=== PATIENT | male | born 1960 | race Two or more races ===

== ENCOUNTER 2024-06-29 13:02 | Outpatient (AMB) | payer BC, SELFPAY ==
[2024-06-29 13:20] VITALS: BP 118/76; PULSE 101; RESP 19; TEMP 36.3; O2SAT 96; BMI 40.6
--- NOTE | 2024-06-29 13:20 | GSCOFFNT_ITS ---
[facility] - [facility] 06/29/24 13:20 Height 1.78 m Height Method Stated Weight 128.593 kg Weight Measurement Method Standing Scale BMI 40.6 BP 118/76 Blood Pressure Source Automatic Cuff Blood Pressure Location Right Upper Arm Position Sitting Respiration 19 Pulse 101 H Pulse Source Monitor Temp 97.4 F Temp Source Temporal Artery Scan Pulse Oximetry (%) 96 Oxygen Delivery Method Room Air Med/Allergies Allergies & Medications Allergies No Known Allergies Allergy (Verified 06/29/24 13:20) Medication Reconciliation dutasteride 0.5 mg capsule 0.5 mg PO QDAY 06/25/22 [History Confirmed 06/29/24] olmesartan 40 mg tablet 40 mg PO QDAY 06/25/22 [History Confirmed 06/29/24] ibuprofen 600 mg tablet 600 mg PO Q6H PRN pain #20 tabs 11/20/23 [Rx Confirmed 06/29/24] duloxetine 60 mg capsule,delayed release 60 mg PO DAILY 05/25/24 [History Confirmed 06/29/24] oxycodone-acetaminophen 5 mg-325 mg tablet (Percocet) 1 tab PO Q6H PRN pain #30 tabs 05/27/24 [Rx Confirmed 06/29/24] MA Intake Visit Data Collection New Patient or Established: Established Patient (seen at [facility] within 3 years) Seen by Clinical Staff ONLY (RN/MA): No Reason for Visit:: FOLLOW UP ABSCESS Pain Present Currently: No 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: No PCP or OBGYN visit in last 3 months: Yes Hx Now: No Do You Feel Safe at Home: Yes Authorities Contacted: N/A Smoking Status Smoking Status: Never smoker Immunization / Flu Flu Vaccine in the Last 12 Months: Yes Flu Vaccine Exclusion Criteria: Already Received Past Medical History Past Medical History NEUROLOGIC: Negative Neurological Disorders or Seizures CARDIAC: Positive Cardiac Disorders and Hypertension; Negative Congestive Heart Failure RESPIRATORY: Negative Chronic Obstructive Pulmonary Disease (COPD) GASTROINTESTINAL: Positive Gastrointestinal Disorders and Obesity GENITOURINARY: Positive Genitourinary Disorders and Benign Prostatic Hyperplasia; Negative Renal Disease MUSCULOSKELETAL: Positive Fibromyalgia ENDOCRINE: Negative Endocrine Disorders, Diabetes Mellitus Type 1 or Diabetes Mellitus Type 2 HEMATOLOGIC: Positive Blood Disorders and Anemia OTHER HISTORY: Positive Hospitalization (surgery); Negative Autoimmune Disease, Developmental Delay, Shingles, Falls, Blood Transfusions, Blood Transfusion Reaction, Anesthesia Reactions or Cancer Family History FAMILY HISTORY: Positive Family Cardiac Disorders; Negative Family Psychiatric Problems, Family Respiratory Disorders, Family Gastrointestinal Problems, Family Cancer, Family Surgery or Family Anesthesia Reaction Surgical History SURGICAL: Positive Gastric Bypass Surgery and Bowel Surgery Social History SMOKING STATUS: Smoking status: Never smoker ALCOHOL: Alcohol Intake: Never ALCOHOL FREQUENCY: Alcohol Intake Frequency: holidays/special occasions only HOUSING: Housing: House HPI HPI Narrative 63M with HTN, edema, obesity and 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 Pt reports he feels well in terms of the fissure with no perianal pain, however for the last 10 days he has noted an area of firmness just to the right of his anus. It has not drained or bled but makes it uncomfortable for him to sit. His PMD prescribed a 15-day course of bactrim for him for sinusitis, he is still takiing and will complete 07/02 ROS Review of Systems Systems Reviewed: All systems reviewed, normal except as documented Objective/Exam General General Appearance: alert, cooperative and well groomed Resp Respiratory exam: Absent respiratory distress Rectal Rectal exam: Present other (no erythema however there is an area of induration at the right posterior anus which is mildly tender) Assessment & Plan Diagnosis / Problem List (1) Perianal abscess: Status: Acute Assessment & Plan: 63M with HTN, edema, obesity and 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 We discussed options and pt prefers bedside aspiration Patient Portal Questionaires Social History Living Situation History Housing: House Tobacco History Smoking Status: Never smoker Alcohol History Alcohol Intake: Never Alcohol Intake Frequency: holidays/special occasions only Domestic Abuse History Do You Feel Safe at Home: Yes Review of Systems Report any current symptoms Only answer those that you have currently: Past Medical History Past Medical History Have you ever been diagnosed with any of the following: Neurological Problems Seizures: No Cardiology Problems Congestive Heart Failure: No Hypertension: Yes Respiratory Problems Chronic Obstructive Pulmonary Disease (COPD): No Stomache/Intestinal Problems Obesity: Yes Genital/Urinary Problems Renal Disease: No Benign Prostatic Hyperplasia: Yes Musculoskeletal Problems Fibromyalgia: Yes Endocrine Problems Diabetes Mellitus Type 1: No Diabetes Mellitus Type 2: No Blood Problems Anemia: Yes Other Problems Hospitalization: Yes (surgery) Autoimmune Disease: No Developmental Delay: No Shingles: No Falls: No Blood Transfusions: No Blood Transfusion Reaction: No Anesthesia Reactions: No Cancer: No
== END 2024-06-29 14:14 | disposition home or self-care (01) ==
LOC: HODSRG 13:02
PROVIDERS: PCP Family Medicine; Referring Provider Family Medicine; Supervising Provider Surgery; Visit Provider Surgery
DX: K61.0 Anal abscess (principal)
CPT/HCPCS: 99213; Q0091; G0463

== ENCOUNTER 2024-07-27 11:02 | Outpatient (AMB) | payer BC, SELFPAY ==
--- NOTE | 2024-07-27 11:07 | PD.GSCLVISIT ---
Vital Signs - [facility] 07/27/24 11:11 Height 1.78 m Height Method Stated Weight 132.137 kg Weight Measurement Method Standing Scale BMI 41.7 BP 136/83 H Blood Pressure Source Automatic Cuff Blood Pressure Location Right Upper Arm Position Sitting Respiration 19 Pulse 94 Pulse Source Monitor Temp 97.9 F Temp Source Temporal Artery Scan Pulse Oximetry (%) 98 Oxygen Delivery Method Room Air Med/Allergies Allergies & Medications Allergies No Known Allergies Allergy (Verified 07/27/24 11:13) Medication Reconciliation dutasteride 0.5 mg capsule 0.5 mg PO QDAY 06/25/22 [History Confirmed 07/27/24] olmesartan 40 mg tablet 40 mg PO QDAY 06/25/22 [History Confirmed 07/27/24] ibuprofen 600 mg tablet 600 mg PO Q6H PRN pain #20 tabs 11/20/23 [Rx Confirmed 07/27/24] duloxetine 60 mg capsule,delayed release 60 mg PO DAILY 05/25/24 [History Confirmed 07/27/24] oxycodone-acetaminophen 5 mg-325 mg tablet (Percocet) 1 tab PO Q6H PRN pain #30 tabs 05/27/24 [Rx Confirmed 07/27/24] mupirocin 2 % topical ointment 1 applic topical BID #22 grams 07/27/24 [Rx] MA Intake Visit Data Collection New Patient or Established: Established Patient (seen at [facility] within 3 years) Seen by Clinical Staff ONLY (RN/MA): No Reason for Visit:: FOLLOW UP Pain Present Currently: No 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 PCP or OBGYN visit in last 3 months: Yes Hx Now: No Do You Feel Safe at Home: Yes Authorities Contacted: N/A Smoking Status Smoking Status: Never smoker Immunization / Flu Flu Vaccine in the Last 12 Months: No Flu Vaccine Exclusion Criteria: No Exclusion Criteria Past Medical History Past Medical History NEUROLOGIC: Negative Neurological Disorders or Seizures CARDIAC: Positive Cardiac Disorders and Hypertension; Negative Congestive Heart Failure RESPIRATORY: Negative Chronic Obstructive Pulmonary Disease (COPD) GASTROINTESTINAL: Positive Gastrointestinal Disorders and Obesity GENITOURINARY: Positive Genitourinary Disorders and Benign Prostatic Hyperplasia; Negative Renal Disease MUSCULOSKELETAL: Positive Fibromyalgia ENDOCRINE: Negative Endocrine Disorders, Diabetes Mellitus Type 1 or Diabetes Mellitus Type 2 HEMATOLOGIC: Positive Blood Disorders and Anemia OTHER HISTORY: Positive Hospitalization (surgery); Negative Autoimmune Disease, Developmental Delay, Shingles, Falls, Blood Transfusions, Blood Transfusion Reaction, Anesthesia Reactions or Cancer Family History FAMILY HISTORY: Positive Family Cardiac Disorders; Negative Family Psychiatric Problems, Family Respiratory Disorders, Family Gastrointestinal Problems, Family Cancer, Family Surgery or Family Anesthesia Reaction Surgical History SURGICAL: Positive Gastric Bypass Surgery and Bowel Surgery Social History SMOKING STATUS: Smoking status: Never smoker ALCOHOL: Alcohol Intake: Never ALCOHOL FREQUENCY: Alcohol Intake Frequency: holidays/special occasions only HOUSING: Housing: House HPI HPI Narrative 63M with HTN, edema, obesity and 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 At last visit on 06/29 pt had an area of induration at the right posterior anus for which he preferred aspiration and felt immediate relief. Pt reports he is doing well from that standpoint but has noted perianal drainage, he is unsure from where exactly and denies any pain or any changes in bowel habits ROS Review of Systems Systems Reviewed: All systems reviewed, normal except as documented Objective/Exam General General Appearance: alert, cooperative and well groomed Resp Respiratory exam: Absent respiratory distress Rectal Rectal exam: Present other (approx 2cm from the anal verge on the right there is a small external opening, not actively draining and not erythematous but appears to be the external opening of a fistula. 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 At the moment his symptoms are manageable, so I explained that silver nitrate application could help the fistula heal although if symptoms persist or worsen he may need surgical intervention which would require two stages likely months apart. For now pt would like to monitor the area and apply mupirocin cream as he feels that helps greatly. All questions were answered and pt is agreeable to follow up in 6 weeks Orders: Orders Silver nitrate applicator topical stick Today Office Procedures GNS Level of Care Nursing/Assessment Patient Status: Established Patient Nursing Assessment/Reassesment: Medication Reconciliation, Update PMH in EMR and Vital Signs Coordination of Care: Complex Care and Chronic Disease 1-5, Education Complex Pt/Fam, Consent,records obtained, informed consent, Results/Orders obtained and Staff clarify orders Established Patient Charge Established Patient Point Assignment: 95 Established Patient Point Charge: EP Level 3 (80-115) Surgical Proc/IM SQ injection Minor Surgical Procedure: Yes (SILVER NITRATE) Medication Given Medication Given Medication Given: Yes Documented Dose Given: 2 Route: Infiitration Office Meds silver nitrate applicators 75 %-25 % topical stick Performing Provider: Valeria Pedraza MD Performing Location: [facility] Administered by: Valeria Pedraza MD on 07/27/24 11:50 Dose Route Admin Location Dispensed Lot Number Expiration Date [facility] [employer] 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 2 applic topical 2 applic [id number] 09/25/24 [id number] [employer] Patient Portal Questionaires Social History Living Situation History Housing: House Tobacco History Smoking Status: Never smoker Alcohol History Alcohol Intake: Never Alcohol Intake Frequency: holidays/special occasions only Domestic Abuse History Do You Feel Safe at Home: Yes Review of Systems Report any current symptoms Only answer those that you have currently: Past Medical History Past Medical History Have you ever been diagnosed with any of the following: Neurological Problems Seizures: No Cardiology Problems Congestive Heart Failure: No Hypertension: Yes Respiratory Problems Chronic Obstructive Pulmonary Disease (COPD): No Stomache/Intestinal Problems Obesity: Yes Genital/Urinary Problems Renal Disease: No Benign Prostatic Hyperplasia: Yes Musculoskeletal Problems Fibromyalgia: Yes Endocrine Problems Diabetes Mellitus Type 1: No Diabetes Mellitus Type 2: No Blood Problems Anemia: Yes Other Problems Hospitalization: Yes (surgery) Autoimmune Disease: No Developmental Delay: No Shingles: No Falls: No Blood Transfusions: No Blood Transfusion Reaction: No Anesthesia Reactions: No Cancer: No
[2024-07-27 11:11] VITALS: BP 136/83; PULSE 94; RESP 19; TEMP 36.6; O2SAT 98; BMI 41.7
== END 2024-07-27 11:37 | disposition home or self-care (01) ==
LOC: HODSRG 11:02
PROVIDERS: PCP Family Medicine; Referring Provider Family Medicine; Supervising Provider Surgery; Visit Provider Surgery
DX: K60.30 Anal fistula, unspecified (principal); I10 Essential (primary) hypertension; E66.9 Obesity, unspecified; Z68.41 Body mass index [BMI] 40.0-44.9, adult
CPT/HCPCS: 17250; 99213; A9270; G0463

== ENCOUNTER → 2024-07-30 | Outpatient (CLI) | payer BC, SELFPAY ==
--- NOTE | 2024-07-30 14:30 | ECHO_ITS ---
Transthoracic Echo Report Ht (in): 70 Wt (lb): 289 Exam Location: Echo Lab Status: Preadmit Licensed Massage Therapist: Winsome Ojeda Indications: Procedure Performed: BP: / HR: Rhythm: Tachycardia Technical Quality: Technically difficult study MEASUREMENTS (Male / Female) Normal Values 2D ECHO LVOT Diameter 2.2 cm LA Volume Index 23.4 cm?/m? 16 - 28 cm?/m? Ascending Aorta Diameter 3.4 cm M-MODE Aortic Root Diameter MM 3.5 cm LA Systolic Diameter MM 4.5 cm LA Ao Ratio MM 1.3 AV Cusp Separation MM 2.6 cm DOPPLER AV Peak Velocity 145.0 cm/s AV Peak Gradient 8.4 mmHg AV Mean Gradient 5.0 mmHg AV Velocity Time Integral 28.8 cm LVOT Peak Velocity 117.0 cm/s LVOT Peak Gradient 5.5 mmHg LVOT Velocity Time Integral 22.1 cm AV Area Cont Eq vti 2.9 cm? AV Area Cont Eq pk 3.1 cm? MV Peak Velocity 94.7 cm/s MV Peak Gradient 3.6 mmHg MV Mean Velocity 56.4 cm/s MV Mean Gradient 2.0 mmHg MV Area PHT 5.0 cm? Mitral E Point Velocity 54.8 cm/s Mitral A Point Velocity 94.1 cm/s Mitral E to A Ratio 0.6 LV E' Lateral Velocity 7.0 cm/s Mitral E to LV E' Lateral Ratio 7.9 LV E' Septal Velocity 7.1 cm/s Mitral E to LV E' Septal Ratio 7.8 TR Peak Velocity 182.0 cm/s TR Peak Gradient 13.2 mmHg FINDINGS Left Ventricle Normal left ventricular size, wall thickness, systolic function with no obvious regional wall motion abnormalities. The ejection fraction is visually estimated at 55-60%. Right Ventricle The right ventricle is normal in size and systolic function. Left Atrium The left atrium is normal by two-dimensional, color flow and Doppler imaging with no structural abnormalities, no thrombus formation present. Right Atrium The right atrium is normal by two-dimensional imaging, color flow and Doppler imaging with no struct ural abnormalities, no thrombus formation present. Atrial Septum The interatrial septum appears normal with no evidence of a shunt. Aorta The aorta is normal by two-dimensional, color flow and Doppler interrogation. Mitral Valve The mitral valve is normal by two-dimensional, color flow and Doppler interrogation. There is no sig nificant mitral valve regurgitation. Aortic Valve The aortic valve is trileaflet and normal by two-dimensional, color flow and Doppler interrogation. There is no significant aortic valve regurgitation. Tricuspid Valve The tricuspid valve is normal by two-dimensional, color flow and Doppler interrogation. There is tra ce tricuspid valve regurgitation. Pulmonic Valve The pulmonic valve is not well visualized. There is no significant pulmonic valve regurgitation. Vessels The pulmonary artery appears normal. The inferior vena cava pulmonary and hepatic veins appear qiana l. Pericardium The pericardium is normal by two-dimensional imaging. There is no significant pericardial effusion. CONCLUSIONS Suboptimal images due to body habitus. The transthoracic study is normal by two-dimensional, color flow imaging and Doppler interrogation. Normal LV size and function. Estimated EF 55-60% Normal RV size and function. Trace TRVernon Talavera (Electronically Signed) Final Date: 30 July 2024 18:29
== END | disposition home or self-care (01) ==
LOC: SDIM 14:14
PROVIDERS: PCP Family Medicine; Referring Provider Family Medicine; Visit Provider Family Medicine
DX: I07.1 Rheumatic tricuspid insufficiency (principal)
CPT/HCPCS: 93306

== ENCOUNTER 2024-09-07 10:31 | Outpatient (AMB) | payer BC, SELFPAY ==
--- NOTE | 2024-09-07 10:43 | GSCOFFNT_ITS ---
Vital Signs - [facility] 09/07/24 10:44 Height 1.78 m Height Method Stated Weight 134.292 kg Weight Measurement Method Standing Scale BMI 42.3 BP 157/7 H Blood Pressure Source Automatic Cuff Blood Pressure Location Left Upper Arm Position Sitting Respiration 18 Pulse 81 Pulse Source Monitor Temp 97.8 F Temp Source Temporal Artery Scan Pulse Oximetry (%) 97 Oxygen Delivery Method Room Air Med/Allergies Allergies & Medications Allergies No Known Allergies Allergy (Verified 09/07/24 10:44) Medication Reconciliation dutasteride 0.5 mg capsule 0.5 mg PO QDAY 06/25/22 [History Confirmed 09/07/24] olmesartan 40 mg tablet 40 mg PO QDAY 06/25/22 [History Confirmed 09/07/24] ibuprofen 600 mg tablet 600 mg PO Q6H PRN pain #20 tabs 11/20/23 [Rx Confirmed 09/07/24] duloxetine 60 mg capsule,delayed release 60 mg PO DAILY 05/25/24 [History Confirmed 09/07/24] oxycodone-acetaminophen 5 mg-325 mg tablet (Percocet) 1 tab PO Q6H PRN pain #30 tabs 05/27/24 [Rx Confirmed 09/07/24] mupirocin 2 % topical ointment 1 applic topical BID #22 grams 07/27/24 [Rx Confirmed 09/07/24] MA Intake Visit Data Collection New Patient or Established: Established Patient (seen at [facility] within 3 years) Seen by Clinical Staff ONLY (RN/MA): No Reason for Visit:: 6 WEEK FOLLOW UP Pain Present Currently: No 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 PCP or OBGYN visit in last 3 months: Yes Hx Now: No Do You Feel Safe at Home: Yes Authorities Contacted: N/A Smoking Status Smoking Status: Never smoker Immunization / Flu Flu Vaccine in the Last 12 Months: No Flu Vaccine Exclusion Criteria: No Exclusion Criteria Past Medical History Past Medical History NEUROLOGIC: Negative Neurological Disorders or Seizures CARDIAC: Positive Cardiac Disorders and Hypertension; Negative Congestive Heart Failure RESPIRATORY: Negative Chronic Obstructive Pulmonary Disease (COPD) GASTROINTESTINAL: Positive Gastrointestinal Disorders and Obesity GENITOURINARY: Positive Genitourinary Disorders and Benign Prostatic Hyperplasia; Negative Renal Disease MUSCULOSKELETAL: Positive Fibromyalgia ENDOCRINE: Negative Endocrine Disorders, Diabetes Mellitus Type 1 or Diabetes Mellitus Type 2 HEMATOLOGIC: Positive Blood Disorders and Anemia OTHER HISTORY: Positive Hospitalization (surgery); Negative Autoimmune Disease, Developmental Delay, Shingles, Falls, Blood Tr ansfusions, Blood Transfusion Reaction, Anesthesia Reactions or Cancer Family History FAMILY HISTORY: Positive Family Cardiac Disorders; Negative Family Psychiatric Problems, Family Respiratory Disorders, Family Gastrointestinal Problems, Family Cancer, Family Surgery or Family Anesthesia Reaction Surgical History SURGICAL: Positive Gastric Bypass Surgery and Bowel Surgery Social History SMOKING STATUS: Smoking status: Never smoker ALCOHOL: Alcohol Intake: Never ALCOHOL FREQUENCY: Alcohol Intake Frequency: holidays/special occasions only HOUSING: Housing: House HPI HPI Narrative 63M with HTN, edema, obesity and anal fissure s/p botox injection 10/2023, with refractory symptoms s/p sphincterotomy 05/27/24 here for follow up. At previous visit pt had noted perianal drainage from the right posterior region, I applied silver nitrate and pt states he has not noted any recent drainage from the area. He denies any pain, overall feels very well with healthy bowel habits, no diarrhea or straining ROS Review of Systems Systems Reviewed: All systems reviewed, normal except as documented Objective/Exam General General Appearance: alert, cooperative and well groomed Resp Respiratory exam: Absent respiratory distress Rectal Rectal exam: Present normal inspection and other (no perianal fistula openings) Assessment & Plan Diagnosis / Problem List (1) Perianal fistula: Status: Acute Assessment & Plan: 63M with HTN, edema, obesity and anal fissure s/p botox injection 10/2023, with refractory symptoms s/p sphincterotomy 05/27/24 here for follow up, recovering well with no current signs of perianal fistula. We discussed return precautions, pt prefers to call with any concerns or questions rather than schedule a follow- up Orders: Orders Silver nitrate applicator topical stick Today Office Procedures GNS Level of Care Nursing/Assessment Patient Status: Established Patient Nursing Assessment/Reassesment: Medication Reconciliation, Update PMH in EMR and Vital Signs Coordination of Care: Complex Care and Chronic Disease 1-5, Consent,records obtained, informed consent, Education Simp Pt/Fam, Results/Orders obtained and Staff clarify orders Established Patient Charge Established Patient Point Assignment: 90 Established Patient Point Charge: EP Level 3 (80-115) Surgical Proc/IM SQ injection Minor Surgical Procedure: Yes (SILVER NITRATE WAS NOT USED WAS RETURNED) Medication Given Medication Given Medication Given: Yes Documented Dose Given: 2 Route: Infiitration Office Meds silver nitrate applicators 75 %-25 % topical stick Performing Provider: Valeria Pedraza MD Performing Location: [facility] Administered by: Valeria Pedraza MD on 09/07/24 11:15 Dose Route Admin Location Dispensed Lot Number Expiration Date [facility] [employer] 2 applic topical 2 applic [id number] 09/25/24 [id number] [employer] Patient Portal Questionaires Social History Living Situation History Housing: House Tobacco History Smoking Status: Never smoker Alcohol History Alcohol Intake: Never Alcohol Intake Frequency: holidays/special occasions only Domestic Abuse History Do You Feel Safe at Home: Yes Review of Systems Report any current symptoms Only answer those that you have currently: Past Medical History Past Medical History Have you ever been diagnosed with any of the following: Neurological Problems Seizures: No Cardiology Problems Congestive Heart Failure: No Hypertension: Yes Respiratory Problems Chronic Obstructive Pulmonary Disease (COPD): No Stomache/Intestinal Problems Obesity: Yes Genital/Urinary Problems Renal Disease: No Benign Prostatic Hyperplasia: Yes Musculoskeletal Problems Fibromyalgia: Yes Endocrine Problems Diabetes Mellitus Type 1: No Diabetes Mellitus Type 2: No Blood Problems Anemia: Yes Other Problems Hospitalization: Yes (surgery) Autoimmune Disease: No Developmental Delay: No Shingles: No Falls: No Blood Transfusions: No Blood Transfusion Reaction: No Anesthesia Reactions: No Cancer: No
[2024-09-07 10:44] VITALS: BP 157/7; PULSE 81; RESP 18; TEMP 36.6; O2SAT 97; BMI 42.3
== END 2024-09-07 10:57 | disposition home or self-care (01) ==
LOC: HODSRG 10:31
PROVIDERS: PCP Family Medicine; Referring Provider Family Medicine; Supervising Provider Surgery; Visit Provider Surgery
DX: Z48.815 Encounter for surgical aftercare following surgery on the digestive system (principal)
CPT/HCPCS: 99213; A9270; G0463

== ENCOUNTER → 2025-01-19 | Outpatient (CLI) | payer BC, SELFPAY ==
[2025-01-19 13:12] LABS: Collection Type, Urine Clean Catch
[2025-01-19 13:43] LABS: Basophils % (Auto) 1 % (0-2.5); Eosinophils # (Auto) 0.1 Thou/mm3 (0.0-0.5); Eosinophils % (Auto) 2 % (0-10); Hemoglobin 11.7 g/dL (13.5-16.0); Immature Granulocytes % (Auto) 0 % (0-0); Immature Granulocytes Auto 0.02 Thou/mm3 (0.00-0.00); Lymphocytes # (Auto) 1.8 Thou/mm3 (1.0-4.8); Lymphocytes % (Auto) 22 % (10-50); Mean Corpuscular HGB Conc 31.6 g/dl (31.0-37.0); Mean Corpuscular Hemoglobin 24.9 pg (25.0-35.0); Mean Corpuscular Volume 79 fL (80-100); Monocytes # (Auto) 0.5 Thou/mm3 (0.0-0.8); Monocytes % (Auto) 6 % (0-12); Neutrophils # (Auto) 5.5 Thou/mm3 (1.8-7.7); Neutrophils % (Auto) 69 % (37-80); Nucleated Red Blood Cell % 0 /100 WBC (0); Platelet Count 292 Thou/mm3 (140-440); Red Blood Count 4.69 Miln/mm3 (4.50-5.90)
[2025-01-19 13:55] LABS: Anion Gap 9 (7-16); BUN/Creatinine Ratio 26 Ratio (12-20); Blood Urea Nitrogen 29 mg/dL (9-23); Calcium 8.7 mg/dL (8.3-10.6); Carbon Dioxide 24.5 mMol/L (20.0-31.0); Cardiac Risk Estimate 4.2 RATIO (4.0-6.7); Chloride 110 mMol/L (98-107); Cholesterol 162 mg/dL (132-200); Creatinine (Component) 1.1 mg/dL (0.6-1.3); Glucose 99 mg/dL (74-106); HDL Cholesterol 39 mg/dL (40-60); LDL Cholesterol,Calculated 86 mg/dL (0-130); Osmolality,Calculated 290 (275-295); Potassium 4.6 mMol/L (3.4-5.1); Sodium 143 mMol/L (136-145); Triglycerides 186 mg/dL (30-150); eGFR > 60 See Note
[2025-01-19 13:58] LABS: Vitamin B12 308 pg/mL (211-911)
[2025-01-19 14:00] LABS: Creatinine MALB Rnd Ur 145 mg/dL (30-125); Microalbumin Creat Ratio 14 mg/gCrea (<30); Microalbumin, Random Urine 20 mg/L (0-300)
[2025-01-19 14:21] LABS: Bilirubin,Urine Negative (Negative); Blood,Urine Negative (Negative); Clarity,Urine Clear (Clear/Hazy); Color,Urine Lt-Yellow (Lt Yel-Yel); Culture Indicated,Urine Not Indicated; Glucose, Urine Negative (Negative); Hyaline Casts,Urine < 1 /hpf (0-1); Ketones,Urine Negative (Negative); Leukocyte Esterase,Urine Negative (Negative); Nitrite,Urine Negative (Negative); PH,Urine 5.5 (5.0-7.0); Protein,Urine Trace (Neg - Trace); RBC,Urine < 1 /hpf (0-3); Specific Gravity,Urine 1.025 (1.001-1.035); Squamous Epithelial Cell,Urine 1 /hpf (0-5); Urobilinogen,Urine Negative mg/dL (0.0-1.0); WBC,Urine 1 /hpf (0-5)
== END | disposition home or self-care (01) ==
PROVIDERS: PCP Family Medicine; Referring Provider Family Medicine; Visit Provider Family Medicine
DX: E78.5 Hyperlipidemia, unspecified (principal); N40.0 Benign prostatic hyperplasia without lower urinary tract symptoms; I10 Essential (primary) hypertension; D51.0 Vitamin B12 deficiency anemia due to intrinsic factor deficiency
CPT/HCPCS: 36415; 80048; 80061; 81001; 82043; 82570; 82607; 85025

== ENCOUNTER → 2025-02-25 | Outpatient (CLI) | payer MEDICARE, SELFPAY ==
[2025-02-25 17:34] LABS: Basophils # (Auto) 0.1 Thou/mm3 (0.0-0.2); Basophils % (Auto) 0 % (0-2.5); Eosinophils # (Auto) 0.1 Thou/mm3 (0.0-0.5); Eosinophils % (Auto) 1 % (0-10); Hematocrit 34.1 % (41.0-53.0); Hemoglobin 11.4 g/dL (13.5-16.0); Immature Granulocytes Auto 0.09 Thou/mm3 (0.00-0.00); Lymphocytes # (Auto) 1.7 Thou/mm3 (1.0-4.8); Lymphocytes % (Auto) 12 % (10-50); Mean Corpuscular HGB Conc 33.4 g/dl (31.0-37.0); Mean Corpuscular Hemoglobin 25.2 pg (25.0-35.0); Mean Corpuscular Volume 75 fL (80-100); Monocytes # (Auto) 0.6 Thou/mm3 (0.0-0.8); Monocytes % (Auto) 4 % (0-12); Neutrophils # (Auto) 11.7 Thou/mm3 (1.8-7.7); Neutrophils % (Auto) 82 % (37-80); Nucleated Red Blood Cell # 0.00 Thou/mm3 (0.00-0.00); Nucleated Red Blood Cell % 0 /100 WBC (0); Platelet Count 512 Thou/mm3 (140-440); RDW Standard Deviation 46.7 fL (35.1-43.9); Red Blood Count 4.53 Miln/mm3 (4.50-5.90); White Blood Count 14.2 Thou/mm3 (3.8-10.6)
[2025-02-25 17:45] LABS: Anion Gap 12 (7-16); BUN/Creatinine Ratio 44 Ratio (12-20); Blood Urea Nitrogen 87 mg/dL (9-23); Calcium 9.9 mg/dL (8.3-10.6); Carbon Dioxide 18.4 mMol/L (20.0-31.0); Chloride 110 mMol/L (98-107); Creatinine (Component) 2.0 mg/dL (0.6-1.3); Glucose 153 mg/dL (74-106); Osmolality,Calculated 308 (275-295); Potassium 4.6 mMol/L (3.4-5.1); Sodium 140 mMol/L (136-145); eGFR 36 See Note
== END | disposition home or self-care (01) ==
PROVIDERS: PCP Family Medicine; Referring Provider Family Medicine; Visit Provider Family Medicine
DX: K52.9 Noninfective gastroenteritis and colitis, unspecified (principal)
CPT/HCPCS: 36415; 80048; 85025

== ENCOUNTER → 2025-03-23 | Outpatient (CLI) | payer MEDICARE, SELFPAY ==
[2025-03-23 15:26] LABS: Basophils # (Auto) 0.0 Thou/mm3 (0.0-0.2); Basophils % (Auto) 0 % (0-2.5); Eosinophils # (Auto) 0.2 Thou/mm3 (0.0-0.5); Eosinophils % (Auto) 2 % (0-10); Hematocrit 39.6 % (41.0-53.0); Hemoglobin 12.1 g/dL (13.5-16.0); Immature Granulocytes Auto 0.05 Thou/mm3 (0.00-0.00); Lymphocytes # (Auto) 2.0 Thou/mm3 (1.0-4.8); Lymphocytes % (Auto) 20 % (10-50); Mean Corpuscular HGB Conc 30.6 g/dl (31.0-37.0); Mean Corpuscular Hemoglobin 25.6 pg (25.0-35.0); Mean Corpuscular Volume 84 fL (80-100); Monocytes # (Auto) 1.1 Thou/mm3 (0.0-0.8); Monocytes % (Auto) 11 % (0-12); Neutrophils # (Auto) 6.8 Thou/mm3 (1.8-7.7); Neutrophils % (Auto) 67 % (37-80); Nucleated Red Blood Cell # 0.00 Thou/mm3 (0.00-0.00); Nucleated Red Blood Cell % 0 /100 WBC (0); Platelet Count 331 Thou/mm3 (140-440); RDW Standard Deviation 50.3 fL (35.1-43.9); Red Blood Count 4.72 Miln/mm3 (4.50-5.90); White Blood Count 10.1 Thou/mm3 (3.8-10.6)
[2025-03-23 15:37] LABS: Anion Gap 9 (7-16); BUN/Creatinine Ratio 14 Ratio (12-20); Blood Urea Nitrogen 15 mg/dL (9-23); Calcium 8.7 mg/dL (8.3-10.6); Carbon Dioxide 26.0 mMol/L (20.0-31.0); Chloride 110 mMol/L (98-107); Creatinine (Component) 1.1 mg/dL (0.6-1.3); Glucose 65 mg/dL (74-106); Osmolality,Calculated 287 (275-295); Potassium 4.7 mMol/L (3.4-5.1); Sodium 145 mMol/L (136-145); eGFR > 60 See Note
== END | disposition home or self-care (01) ==
LOC: COPL 14:07
PROVIDERS: PCP Family Medicine; Referring Provider Family Medicine; Visit Provider Family Medicine
DX: D50.9 Iron deficiency anemia, unspecified (principal); E86.0 Dehydration; I10 Essential (primary) hypertension
CPT/HCPCS: 36415; 80048; 85025

== ENCOUNTER 2025-04-30 10:29 | Emergency (ER) | payer MEDICARE, SELFPAY ==
[2025-04-30 10:30] VITALS: BMI 25.5
--- NOTE | 2025-04-30 10:40 | PC.NURSE ---
no answer in lobby when called for vital signs and to see provider
--- NOTE | 2025-04-30 10:52 | PC.NURSE ---
no answer in lobby when called for vital signs and to see provider
--- NOTE | 2025-04-30 11:57 | PC.NURSE ---
no answer in lobby when called for room in ed
== END 2025-04-30 12:00 | disposition left against medical advice (07) ==
LOC: SERX 12:05
PROVIDERS: Emergency Provider Family Medicine
DX: Z53.21 Procedure and treatment not carried out due to patient leaving prior to being seen by health care provider (principal)
CPT/HCPCS: 99281

== ENCOUNTER 2025-05-04 13:42 | Inpatient (IN) | payer MEDICARE, SELFPAY ==
[2025-05-04] VITALS (7 sets, daily range): BP systolic 78–100; BP diastolic 42–69; PULSE 75–84; RESP 16–99; TEMP 36.5–37.2; O2SAT 94–100; BMI 39.4; BMI 40.5
--- NOTE | 2025-05-04 14:10 | EKG_ITS ---
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
--- NOTE | 2025-05-04 14:10 | XR_ITS ---
Examination: CT abdomen and pelvis without contrast. Coronal 3-D reconstructions. Sagittal 2-D reconstructions. Date and time of exam:May 04, 2025 1531 hours, comparison July 18, 2014 INDICATIONS: Abdominal pain and cramping today CTDI: vol (mGy): 16.3 DLP: (mGycm): 1163 Technique: Axial images of the abdomen have been obtained, 3 mm slice thickness Intravenous contrast material has not been administered. Low dose protocols were performed. One or more of the following dose reduction techniques were used; automated exposure control, adjustment of the mA and/or KV according to patient size, use of iterative reconstruction technique. Findings: No focal liver or splenic lesion Distended gallbladder, gallstones, marked gallbladder wall thickening No definite extra hepatic biliary tract dilatation No pancreatic mass No renal or ureteral calculi Aorta normal size Intact urinary bladder Abnormal thickening of the right lateral wall of the rectum, axial image 229 measuring up to 19 mm Prominent osteopenia with advanced degenerative disc disease L4-L5, L5-S1 IMPRESSION: Acute calculus cholecystitis, recommend hepatobiliary sonography follow-up Abnormal thickening of the right lateral wall of the rectum, differential would include rectal carcinoma, recommend direct inspection
--- NOTE | 2025-05-04 14:12 | PD.EDADULT ---
ED General RME/HPI General Chief complaint: Syncope / Near Syncope Stated complaint: NEAR SYNCOPE Time Seen by Provider: 05/04/25 14:09 Arrival date/time: 05/04/25 13:42 CC: Abdominal pain abdominal cramping near syncope HPI patient has a second episode of near syncope the first 1 3 days ago and then again today. Patient denies LOC. Patient has had lower abdominal cramping and constipation for the past 4 days. Patient has a history of a Hardeep-en-Y performed by Dr. Cochran in [place] in 2000. EMS reports stable vital signs and route. Patient denies fever chills chest pain shortness of breath or difficulty breathing. Patient is adamant he had no loss of consciousness this episode today. Patient was seen by PCP 2 days ago given a shot of Toradol for his cramping and went home. Related Data Home Medications ?Medication ?Instructions ?Recorded ?Confirmed dutasteride 0.5 mg capsule 0.5 mg PO QDAY 06/25/22 09/07/24 olmesartan 40 mg tablet 40 mg PO QDAY 06/25/22 09/07/24 duloxetine 60 mg capsule,delayed 60 mg PO DAILY 05/25/24 09/07/24 release Previous Rx's ?Medication ?Instructions ?Recorded ibuprofen 600 mg tablet 600 mg PO Q6H PRN pain #20 tabs 11/20/23 oxycodone-acetaminophen 5 mg-325 1 tab PO Q6H PRN pain #30 tabs 05/27/24 mg tablet (Percocet) mupirocin 2 % topical ointment 1 applic topical BID #22 grams 07/27/24 Allergies Allergy/AdvReac Type Severity Reaction Status Date / Time No Known Allergies Allergy Verified 05/04/25 13:57 Review of Systems Review of Systems Narrative Review of Systems: GEN: No fever, no chills, no weight loss EYES: No discharge, no visual changes, no pain HEENT: No ear pain, no congestion, no sore throat PULM: No shortness of breath, no cough, no congestion CV: No chest pain, no dyspnea on exertion, no palpitations GI: No nausea, no vomiting, no diarrhea, + pain, + constipation : No frequency, no urgency, no dysuria MUSC/SKEL: No joint pain, no back pain SKIN: No rash PSYCH: No hallucinations, no depression HEME/LYMPH: No easy bleeding or bruising tendencies NEURO: No weakness, no headache Past Medical History Past Medical History NEUROLOGIC: Negative Neurological Disorders or Seizures CARDIAC: Positive Cardiac Disorders and Hypertension; Negative Congestive Heart Failure RESPIRATORY: Negative Chronic Obstructive Pulmonary Disease (COPD) GASTROINTESTINAL: Positive Gastrointestinal Disorders and Obesity GENITOURINARY: Positive Genitourinary Disorders and Benign Prostatic Hyperplasia; Negative Renal Disease MUSCULOSKELETAL: Positive Musculoskeletal Disorders and Fibromyalgia ENDOCRINE: Negative Endocrine Disorders, Diabetes Mellitus Type 1 or Diabetes Mellitus Type 2 HEMATOLOGIC: Positive Blood Disorders and Anemia OTHER HISTORY: Positive Hospitalization (surgery); Negative Autoimmune Disease, Developmental Delay, Shingles, Falls, Blood Transfusions, Blood Transfusion Reaction, Anesthesia Reactions or Cancer Family History FAMILY HISTORY: Positive Family Cardiac Disorders; Negative Family Psychiatric Problems, Family Respiratory Disorders, Family Gastrointestinal Problems, Family Cancer, Family Surgery or Family Anesthesia Reaction Surgical History SURGICAL: Positive Gastric Bypass Surgery and Bowel Surgery Social History SMOKING STATUS: Former smoker SUBSTANCE USE: does not use ED Exam Narrative Physical exam: [General: Obese not in any acute distress Head normocephalic HEENT: Within acceptable limits Neck is supple nontender Chest equal chest rise nontender to palpation Respiratory: Clear to auscultation no wheezes crackles or rubs CV: Rate rhythm is regular no murmurs rubs or clicks Abdomen is grossly distended secondary to body habitus soft nontender no masses positive bowel sounds all 4 quadrants Back: No CVA tenderness no spinous process tenderness from cervical spine thoracic and lumbar spine Skin: Intact no petechiae rash induration ulceration or crepitus Extremities: Moving all extremity against resistance cap refill less than 2 seconds neurosensory intact Neuro: Awake alert oriented x3 Glascow coma 15 no focal deficits] Course Course Course Narrative: CT shows the patient has acute cholecystitis with a 13,000 white count he is chronically anemic. Patient's laboratory results clinical presentation and imaging discussed with Dr. huang who agrees to this consult Patient's case discussed with residents and who agrees accept the patient for admission. Quality Measures none Orders Category Date Time Status EKG (ED ONLY) *Do not use* NOW Care 05/04/25 14:10 Completed Consult to General Surgery Stat Cons 05/04/25 16:[address] abdomen pelvis wo con Stat Exams 05/04/25 14:10 Completed EKG (ED Only) Stat Exams 05/04/25 14:10 Draft B-Type Natriuretic Peptide Stat Lab 05/04/25 14:36 Completed CBC Stat Lab 05/04/25 14:36 Completed Comprehensive Metabolic Panel Stat Lab 05/04/25 14:36 Completed Drug Screen,Urine Stat Lab 05/04/25 14:36 Completed LDH (Lactate Dehydrogenase) Stat Lab 05/04/25 14:36 Completed Magnesium Stat Lab 05/04/25 14:36 Completed Partial Thromboplastin Time Stat Lab 05/04/25 14:36 Completed Prothrombin Time with INR Stat Lab 05/04/25 14:36 Completed Troponin I Stat Lab 05/04/25 14:36 Completed Urinalysis, C/S if Indicated Stat Lab 05/04/25 14:36 Completed Piper/Tazo 3.375 gm Premix [Zosyn] Med 05/04/25 16:07 Active 3.375 gm in 50 ml IV X1 Sodium Chloride 0.9% 1000 ml [Ns] 1,000 ml Med 05/04/25 15:33 Active IV 999 mls/hr Vital Signs Vital signs: Vital Signs Temperature 97.7 F 05/04/25 13:49 Pulse Rate 77 05/04/25 13:49 Respiratory Rate 18 05/04/25 13:49 Blood Pressure 95/59 L 05/04/25 13:49 Pulse Oximetry (%) 100 05/04/25 13:49 Oxygen Delivery Method Nasal Cannula 05/04/25 13:49 Oxygen Flow Rate 4 05/04/25 13:49 Discharge Plan Plan Patient Disposition: Other Care w/in Hosp ([facility]) Patient condition on transfer: Stable Prescriptions/Referrals Prescriptions/Med Rec: No Action mupirocin 2 % ointment 1 applic topical BID Qty: 22 1RF olmesartan 40 mg tablet 40 mg PO QDAY Patient Comments: TAKE 1 TABLET BY MOUTH EVERY DAY AT DINNER dutasteride 0.5 mg capsule 0.5 mg PO QDAY Patient Comments: TAKE 1 CAPSULE BY MOUTH EVERY DAY duloxetine 60 mg capsule,delayed release(DR/EC) 60 mg PO DAILY oxycodone-acetaminophen [Percocet] 5-325 mg tablet 1 tab PO Q6H MDD 6 tabs PRN (Reason: pain) Qty: 30 0RF ibuprofen 600 mg tablet 600 mg PO Q6H PRN (Reason: pain) Qty: 20 0RF Problem List Clinical Impression: RAUDEL (acute kidney injury), Acute cholecystitis Patient/Caregiver Discharge Instructions Print Language: Faroese Stand Alone Forms: Allison Award Info., Patient Portal Info Letter PA/APARTMENT LEASING AGENT Supervising Physician NORMA/KENNY Supervising Physician: Byron Canales ENP MDM Clinical Information Provided by patient and EMS Medical Records Reviewed [facility] and EMS Meds/Rx Considered, not Ordered None Labs/Rad/Tests considered, not Ordered None Chronic Illness/Social Conditions Add or document further as needed: Gastric bypass. Obesity EKG EKG Interpretation narrative: EKG performed at 1426 shows ventricular rate 75 AR interval 166 QRS of 122 QTc of 393 sinus rhythm right bundle branch block. Lab Interpretation Lab(s) interpretation(s): CBC shows a leukocytosis of 13.4 H&H of 9.8 and 29.8 respectively no thrombocytopenia note the patient has been anemic but not as severe as today. Coags within acceptable limits CMP shows sodium 135 BUN of 68 creatinine of 2.9 glucose at 95 no other electrolyte imbalances no other transaminitis or T. bili elevation Troponin is unremarkable BMP is unremarkable Imaging Provider imaging interpretation(s): CT shows acute calculous cholecystitis. There is also abnormal thinking of the rectal wall. Medication Administration(s) Medication Administration History Sodium Chloride (Ns) 1,000 mls @ 999 mls/hr IV .Q1H1M ONE Stop: 05/04/25 16:33 Last Admin: 05/04/25 15:39 Dose: 999 mls/hr Documented By: VL Piperacillin/Tazobactam/Dextrose (Zosyn) 3.375 gm in 50 mls @ 100 mls/hr IV X1 ONE; Protocol Stop: 05/04/25 16:36
[2025-05-04 14:53] LABS: Collection Type, Urine Clean Catch
[2025-05-04 14:54] LABS: Basophils # (Auto) 0.0 Thou/mm3 (0.0-0.2); Basophils % (Auto) 0 % (0-2.5); Eosinophils # (Auto) 0.1 Thou/mm3 (0.0-0.5); Eosinophils % (Auto) 0 % (0-10); Hematocrit 29.8 % (41.0-53.0); Hemoglobin 9.8 g/dL (13.5-16.0); Immature Granulocytes Auto 0.13 Thou/mm3 (0.00-0.00); Lymphocytes # (Auto) 1.1 Thou/mm3 (1.0-4.8); Lymphocytes % (Auto) 8 % (10-50); Mean Corpuscular HGB Conc 32.9 g/dl (31.0-37.0); Mean Corpuscular Hemoglobin 26.4 pg (25.0-35.0); Mean Corpuscular Volume 80 fL (80-100); Monocytes # (Auto) 1.0 Thou/mm3 (0.0-0.8); Monocytes % (Auto) 8 % (0-12); Neutrophils # (Auto) 11.0 Thou/mm3 (1.8-7.7); Neutrophils % (Auto) 82 % (37-80); Nucleated Red Blood Cell # 0.00 Thou/mm3 (0.00-0.00); Nucleated Red Blood Cell % 0 /100 WBC (0); Platelet Count 244 Thou/mm3 (140-440); RDW Standard Deviation 47.4 fL (35.1-43.9); Red Blood Count 3.71 Miln/mm3 (4.50-5.90); White Blood Count 13.4 Thou/mm3 (3.8-10.6)
[2025-05-04 15:08] LABS: Alanine Aminotransferase 16 U/L (10-49); Albumin, Serum 3.7 gm/dL (3.4-4.8); Albumin/Globulin Ratio 1.5 (1.2-2.2); Alkaline Phosphatase 92 U/L (46-116); Anion Gap 13 (7-16); Aspartate Amino Transferase 29 U/L (0-34); BUN/Creatinine Ratio 23 Ratio (12-20); Bilirubin,Total 0.4 mg/dL (0.3-1.2); Blood Urea Nitrogen 68 mg/dL (9-23); Calcium 8.7 mg/dL (8.3-10.6); Calcium (Corrected) 8.9 mg/dL (8.5-10.1); Carbon Dioxide 21.4 mMol/L (20.0-31.0); Chloride 101 mMol/L (98-107); Creatinine (Component) 2.9 mg/dL (0.6-1.3); Estimated Creatinine Clearance 33.7 mL/min (>60); Globulin 2.5 gm/dL (2.3-3.5); Glucose 95 mg/dL (74-106); LDH (Lactate Dehydrogenase) 152 U/L (120-246); Magnesium 2.2 mg/dL (1.6-2.6); Osmolality,Calculated 289 (275-295); Potassium 3.8 mMol/L (3.4-5.1); Sodium 135 mMol/L (136-145); Total Protein 6.2 gm/dL (5.7-8.2); Troponin I < 0.002 ng/mL (0.0-0.045); eGFR 23 See Note
[2025-05-04 15:10] LABS: INR 1.0 (0.9-1.3); Partial Thromboplastin Time 23.6 Seconds (22.0-36.0); Prothrombin Time 10.9 Seconds (9.0-12.2)
[2025-05-04 15:15] LABS: Bilirubin,Urine Negative (Negative); Blood,Urine Negative (Negative); Color,Urine Yellow (Lt Yel-Yel); Culture Indicated,Urine Not Indicated; Glucose, Urine Negative (Negative); Hyaline Casts,Urine 1 /hpf (0-1); Ketones,Urine Negative (Negative); Leukocyte Esterase,Urine Negative (Negative); Nitrite,Urine Negative (Negative); PH,Urine 5.5 (5.0-7.0); Protein,Urine 1+ (Neg - Trace); RBC,Urine 2 /hpf (0-3); Specific Gravity,Urine 1.016 (1.001-1.035); Squamous Epithelial Cell,Urine 1 /hpf (0-5); Urobilinogen,Urine Negative mg/dL (0.0-1.0); WBC,Urine 7 /hpf (0-5)
[2025-05-04 15:16] LABS: Amphetamine/Methamp Scrn,U Negative (Negative); Barbiturate Screen,Urine Negative (Negative); Benzodiazepines Screen,Urine Negative (Negative); Benzoylecgonine Screen, Ur Negative (Negative); Fentanyl Screen,Urine Negative (Negative); Opiate Screen,Urine Negative (Negative); THC Screen,Urine Negative (Negative)
[2025-05-04 15:17] LABS: B-Type Natriuretic Peptide < 20 pg/mL (0-100)
[2025-05-04 15:36] LABS: Clarity,Urine Hazy (Clear/Hazy)
[2025-05-04] MEDS: SODIUM CHLORIDE 0.9% 1000 ML 1,000 ML 999 ML IV (15:39)
[2025-05-04] MEDS: PIPER/TAZO 3.375 GM PREMIX 3.375 GM/50 ML BAG IV (16:51)
[2025-05-04 17:20] LABS: Lactate (Lactic Acid) 0.8 mMol/L (0.4-2.0)
--- NOTE | 2025-05-04 18:13 | PD.RESHP ---
Documentation for date of: 05/04/25 HPI History of Present Illness History of present illness: Patient is a 64-year-old male with past medical history of hypertension and Hardeep-en-Y gastric bypass (2000) who presents on 05/04 for multiple falls over the past 3 days. Patient reports that he had sharp constant right upper quadrant abdominal pain 4 days ago. Presented to the [facility] ED but left before being seen. Took Odessa 5 at home, leftover from previous dental procedure, as well as ibuprofen for pain. Started falling and not recalling events. Denied lightheadedness or dizziness during these episodes. Went to PCP on 05/01, was given Toradol with not much improvement in right upper quadrant pain. Continued losing consciousness and falling since. Right upper quadrant pain has improved, dull and intermittent now. Denies fevers, chills, nausea, vomiting, diarrhea. ED Course: -Initial vitals were BP 95/59, HR 77, RR 18, temp 97.7, 100 percent on room air -Labs significant for WBC 13.4, hemoglobin 9.8, sodium 135, potassium 3.8, BUN 68, creatinine 2.9, glucose 289, lactic 0.8. Total bilirubin 0.4, AST and ALT within normal limits. EKG shows sinus rhythm with RBBB. No ST or T wave changes observed. UA shows WBC 7 otherwise unremarkable. Utox negative. -Imaging included CT A/P shows acute calculous cholecystitis and abnormal thickening of the right lateral wall of the rectum. -In the ED, patient was given Zosyn x 1 and 1 L NS. -Patient was admitted for syncope. Review of Systems Review of systems otherwise negative except what is mentioned above. Past Medical History: Hypertension, BPH, anal fistula, IBS Family History: Noncontributory Surgical History: Hardeep-en-Y (2000), lateral internal sphincterotomy (05/2024) Social History: Occassional alcohol use. Denies history of smoking, denies recreational drug use Current Medications: Duloxetine, dutasteride, ibuprofen, olmesartan,, Linzess (Source: Medication bottles, pending official med rec) Allergies: No known drug allergies Exam Vital Signs Temp Pulse Resp BP Pulse Ox O2 Del Method O2 Flow Rate 98.8 F 77 19 80/43 L 100 Room Air 4 05/04/25 16:04 05/04/25 18:06 05/04/25 17:29 05/04/25 18:06 05/04/25 16:04 05/04/25 16:04 05/04/25 13:49 Narrative Exam Physical Exam General: Awake and in no acute distress. Conversational and non-toxic appearing. Obese. HEENT: Normocephalic, atraumatic, mucous membranes moist. Heart: Regular rate and rhythm, normal S1 and S2, no murmurs. Lungs: Clear to auscultation with no wheezing or crackles. Abdomen: Soft, nondistended, very mild right upper quadrant tenderness, positive bowel sounds. No guarding or rebound tenderness. Neurologic: Alert and oriented x3, no gross neurological deficit, and patient able to move all 4 extremities. Extremities: No edema. Skin: No rash or ecchymoses. Results: Labs 05/05/25 05:20 05/05/25 05:20 Labs: Short CBC 05/04/25 Range/Units 14:36 WBC 13.4 H (3.8-10.6) Thou/mm3 Hgb 9.8 L (13.5-16.0) g/dL Hct 29.8 L (41.0-53.0) % Plt Count 244 (140-440) Thou/mm3 BMP 05/04/25 14:36 Sodium 135 L Potassium 3.8 Chloride 101 Carbon Dioxide 21.4 BUN 68 H Creatinine 2.9 H Glucose 95 Calcium 8.7 Cardiac Enzymes 05/04/25 Range/Units 14:36 Troponin I < 0.002 (0.0-0.045) ng/mL Liver Function 05/04/25 Range/Units 14:36 Total Bilirubin 0.4 (0.3-1.2) mg/dL AST 29 (0-34) U/L ALT 16 (10-49) U/L Alkaline Phosphatase 92 (46-116) U/L Albumin 3.7 (3.4-4.8) gm/dL Urine 05/04/25 Range/Units 14:36 Urine Color Yellow (Lt Yel-Yel) Urine Clarity Hazy (Clear/Hazy) Urine pH 5.5 (5.0-7.0) Ur Specific [place] 1.016 (1.001-1.035) Urine Protein 1+ A (Neg - Trace) Urine Glucose (UA) Negative (Negative) Quality Measures Quality Measures none Advance care planning discussed with:: patient Medications Home Medications and Allergies Home Medications ?Medication ?Instructions ?Recorded ?Confirmed ?Type dutasteride 0.5 mg capsule 0.5 mg PO QDAY 06/25/22 05/04/25 History olmesartan 40 mg tablet 40 mg PO QDAY 06/25/22 05/04/25 History duloxetine 60 mg capsule,delayed 60 mg PO DAILY 05/25/24 05/04/25 History release ibuprofen 200 mg tablet 800 mg PO BID PRN pain 05/04/25 05/04/25 History linaclotide 1 cap PO DAILY 05/04/25 05/04/25 History linaclotide 145 mcg capsule 145 mcg PO DAILY 05/04/25 05/04/25 History (Linzess) olmesartan 40 1 tab PO DAILY 05/04/25 05/04/25 History mg-hydrochlorothiazide 12.5 mg tablet pregabalin 1 cap PO BID 05/04/25 05/04/25 History semaglutide (weight loss) 0.25 0.25 mg subcut Q7D 05/04/25 05/04/25 History mg/0.5 mL subcutaneous pen injector (Wegovy) Allergies Allergy/AdvReac Type Severity Reaction Status Date / Time No Known Allergies Allergy Verified 05/04/25 13:57 Visit Medications Acetaminophen (Acetaminophen 325 Mg Tablet) 650 mg PO Q6H PRN PRN Reason: Fever >101.5 and pain 1-3 Stop: 06/03/25 16:43 Hydrocodone Bitart/Acetaminophen (Hydrocodone/Apap 5/325 Tablet) 1 tab PO Q8HR PRN PRN Reason: Pain 7-10 Stop: 05/09/25 16:52 Heparin Sodium (Porcine) (Heparin Sod Inj 5000 Unit/Ml Vial) 5,000 unit SC Q8HR KEY Stop: 05/18/25 21:59 Lactated Ringer's (Lactated Ringers) 1,000 mls @ 125 mls/hr IV .Q8H ONE Stop: 05/05/25 00:54 Lactated Ringer's (Lactated Ringers) 500 mls @ 999 mls/hr IV .Q31M KEY Stop: 06/03/25 18:11 Pantoprazole Sodium (Pantoprazole Inj 40 Mg Vial) 40 mg IVP QDAY KEY Stop: 06/04/25 08:59 Tramadol HCl (Tramadol Hcl 50 Mg Tablet) 50 mg PO Q6HR PRN PRN Reason: PAIN SCALE 4-6 (Moderate Stop: 05/09/25 16:51 Discontinued Medications Sodium Chloride (Ns) 1,000 mls @ 999 mls/hr IV .Q1H1M ONE Stop: 05/04/25 16:33 Last Infusion: 05/04/25 16:41 Dose: Infused Piperacillin/Tazobactam/Dextrose (Zosyn) 3.375 gm in 50 mls @ 100 mls/hr IV X1 ONE; Protocol Stop: 05/04/25 16:36 Last Infusion: 05/04/25 17:31 Dose: Infused Assessment & Plan Plan Patient is a 64 year old male with PMH of hypertension and Hardeep-en-Y gastric bypass (2000) who presents on 05/04 for RUQ pain and multiple falls over the past 3 days, admitted for acute calculous cholecystitis syncope work up. #Syncope #Hypotension Patient has had multiple falls over the past 3 days. Denies prior episodes. It started after he has took Odessa 5 at home for his right upper quadrant pain. Denies lightheadedness or dizziness. Does not recall events preceding falls. Echo 07/30/2024 shows EF of 55 to 60%, normal LV and RV size and function. Only noted trace TR. Unlikely cardiogenic. Denies history of arrhythmias or seizures. EKG showed normal sinus rhythm with RBBB. Glucose 95 on admission. Most likely secondary to dehydration in setting of elevated creatinine and hypotension. Plan: - Pending orthostatic vitals - CTM BP - Hold antihypertensive meds #Acute Calculous cholcystitis #Leukocytosis Had history RUQ abdominal pain 3 days ago, improving after taking Odessa, ibuprofen, and Toradol. Currently dull and intermittent. CT A/P showed acute calculous cholecystitis and abnormal thickening of the right lateral wall of the rectum. Meets only 1/3 SIRS criteria (WBC 13.4, no fever, tachycardia, tachypnea), does not qualify as sepsis. No pain medications administered in ED. Plan: - Consulted surgeon Dr. Ugarte, appreciate recommendations - S/p IV Zosyn x1 in ED - Will defer antibiotics at this time - Pain regimen: Tylenol, tramadol, norco 5 prn #RAUDEL Admission creatinine 2.9, baseline 1.0-1.2. No history of CKD per patient. Likely prerenal secondary to dehydration in conjunction with hypotension. S/p 1L NS x1 Plan: - IV LR 1L bolus + 500 cc LR bolus, consider additional bolus if continues to be hypotensive - CTM renal panel #Anemia, normocytic #Hx IBS #Hx Hardeep-en-Y Admission Hgb 9.8, baseline 11-12. May be secondary to IBS and Hardeep-en-Y. Does not take multivitamins or iron at home. Takes Linzess at home. - Follow up iron panel, B12, folate, CEA - Pending official med rec #Hx HTN #BPH Chronic problems. BP low on admission. Takes olmesartan and dutasteride at home. Pending official med rec. - Restart home dutasteride when med rec completed - Hold olmesartan as patient is hypotensive - CTM BP Health Maintenance Disposition: med surg for syncope work up DVT prophylaxis: heparin GI prophylaxis: protonix Diet: regular CODE STATUS: FULL Patient plan of care was discussed with the attending physician, Dr. Aguirre. Yanelis Mccartney, PGY-1 Attending Provider Attestation/Addendum I attest that I was physically present for the evaluation, physical examination, lab and imaging review of the patient with the residents. I discussed the case with the residents and agree with the findings and plans of care as documented above. After examination of the patient and review of the clinical data I feel that this patient needs admission to the hospital for further treatment/evaluation. Patient is a 64 year old male with Past medical history of hypertension and Hardeep-en-Y gastric bypass surgery who presented with complaint of multiple falls. Patient also has right upper quadrant for last 4 days. He took some Odessa and Ibuprofen at home but did not have full relief. He had multiple falls at home during which he cannot recall what happened for few seconds. Denies fever, lightheadedness, dizziness, chest pain or palpitations during/before the episode. Today, RUQ pain is better but still has some dull pain and tenderness. In the ED, Vitals are stable, although blood pressure is on softer side. Lab results show WBC of 13.4, Hb 9.8, BUN/Creatinine 68/2.9, Glucose 289. Liver panel were within normal limits. CT abdomen/pelvis shows calculous cholecystitis. EKG showed sinus rhythm with RBBB without ST elevation. Patient has mild RUQ tenderness. We will admit the patient for management of calculous cholecystitis. We will start him on IV antibiotics and obtain surgery consult. Syncope appears to be secondary to hypotension but we will obtain orthostatic vitals, hold antihypertensives, obtain ECHO to evaluate further. Received IV fluid bolus for RAUDEL, we will continue to monitor closely. Iron studies, B12, folate to evlauate for anemia. Consuelo Aguirre MD
[2025-05-04] MEDS: RINGERS LACTATED 500 ML 500 ML 999 ML IV (18:18)
[2025-05-04 20:37] LABS: Ferritin 126 ng/mL (10.5-307.3); Iron 13 mcg/dL (65-175); Percent Iron Saturation 4 % (20-55); Total Iron Binding Capacity 266 mcg/dL (250-425); Unsaturated Iron Binding 253 (225-295)
[2025-05-04 20:40] LABS: Carcinoembryonic Antigen < 0.5 ng/mL (0.0-5.0); Folate 6.65 ng/mL (>5.38); Vitamin B12 218 pg/mL (211-911)
--- NOTE | 2025-05-04 22:20 | PC.NURSE ---
had a small amount of thick light yellow, cream colored drain in toilet hat, possibly due to drainage from anal abscess.
[2025-05-04] MEDS: HEPARIN SOD INJ 5000 UNIT/ML VIAL SC (23:11)
[2025-05-05] VITALS (14 sets, daily range): BP systolic 96–136; BP diastolic 62–83; PULSE 84–109; RESP 12–96; TEMP 36.1–37.4; O2SAT 94–99
[2025-05-05 01:38] LABS: OBS Card Expiration Date 09-2026; OBS Card Lot # 23001; OBS Developer Expiration Date 09-2026; OBS Developer Lot # 23003; OBS Performed By fabic; OBS QC OK? Yes; Occult Blood, Stool Negative (Negative)
[2025-05-05 05:52] LABS: Basophils # (Auto) 0.0 Thou/mm3 (0.0-0.2); Basophils % (Auto) 0 % (0-2.5); Eosinophils # (Auto) 0.0 Thou/mm3 (0.0-0.5); Eosinophils % (Auto) 0 % (0-10); Hematocrit 32.2 % (41.0-53.0); Hemoglobin 10.3 g/dL (13.5-16.0); Immature Granulocytes Auto 0.12 Thou/mm3 (0.00-0.00); Lymphocytes # (Auto) 1.0 Thou/mm3 (1.0-4.8); Lymphocytes % (Auto) 8 % (10-50); Mean Corpuscular HGB Conc 32.0 g/dl (31.0-37.0); Mean Corpuscular Hemoglobin 26.1 pg (25.0-35.0); Mean Corpuscular Volume 82 fL (80-100); Monocytes # (Auto) 0.9 Thou/mm3 (0.0-0.8); Monocytes % (Auto) 7 % (0-12); Neutrophils # (Auto) 11.0 Thou/mm3 (1.8-7.7); Neutrophils % (Auto) 84 % (37-80); Nucleated Red Blood Cell # 0.00 Thou/mm3 (0.00-0.00); Nucleated Red Blood Cell % 0 /100 WBC (0); Platelet Count 250 Thou/mm3 (140-440); RDW Standard Deviation 48.3 fL (35.1-43.9); Red Blood Count 3.95 Miln/mm3 (4.50-5.90); White Blood Count 13.1 Thou/mm3 (3.8-10.6)
[2025-05-05 06:08] LABS: Alanine Aminotransferase 24 U/L (10-49); Albumin, Serum 3.9 gm/dL (3.4-4.8); Albumin/Globulin Ratio 1.6 (1.2-2.2); Alkaline Phosphatase 98 U/L (46-116); Anion Gap 12 (7-16); Aspartate Amino Transferase 24 U/L (0-34); BUN/Creatinine Ratio 27 Ratio (12-20); Bilirubin,Total 0.4 mg/dL (0.3-1.2); Blood Urea Nitrogen 49 mg/dL (9-23); Calcium 8.9 mg/dL (8.3-10.6); Calcium (Corrected) 9.0 mg/dL (8.5-10.1); Carbon Dioxide 24.1 mMol/L (20.0-31.0); Chloride 105 mMol/L (98-107); Creatinine (Component) 1.8 mg/dL (0.6-1.3); Estimated Creatinine Clearance 55.0 mL/min (>60); Globulin 2.5 gm/dL (2.3-3.5); Glucose 114 mg/dL (74-106); Magnesium 2.1 mg/dL (1.6-2.6); Osmolality,Calculated 295 (275-295); Phosphorous 4.0 mg/dL (2.4-5.1); Potassium 4.0 mMol/L (3.4-5.1); Sodium 141 mMol/L (136-145); Total Protein 6.4 gm/dL (5.7-8.2); eGFR 41 See Note
--- NOTE | 2025-05-05 09:47 | PD.SURCONS ---
HPI Consult details Consult date: 05/04/25 Reason for consultation narrative: Right upper quadrant abdominal pain with nausea History of present illness: 64-year-old obese male with history of BPH and hypertension has had laparoscopic Hardeep-en-Y gastric bypass 20 years ago. He presented to the emergency department with right upper quadrant pain and syncopal episodes. He has had 1 week history of intermittent right upper quadrant pain rating to his back. His pain has been getting progressively worse with nausea but denies vomiting, fever, chills, jaundice or discoloration of urine or stool. He denies having similar symptoms in the past. He was noted to have elevation of WBC, CT scan revealed gallstones with gallbladder wall thickening and edema. Review of Systems Constitutional Constitutional: Denies chills and Denies fever(s) Cardiovascular Cardiovascular: Denies chest pain Respiratory Respiratory: Denies cough Gastrointestinal Gastrointestinal: Reports abdominal pain, Reports nausea and Denies vomiting Genitourinary Genitourinary: Denies difficulty urinating Hematologic/Lymphatic Hematologic/Lymphatic: Denies easy bleeding and Denies easy bruising Past Medical History Surgical History OTHER SURGICAL HX: Laproscopis Hardeep-en-Y gastric bypass, repair anal fissure, appendectomy, laparoscopy for reduction of intussusception or internal hernia (details are not known at this time). Social History SMOKING STATUS: Never smoker SUBSTANCE USE: does not use ALCOHOL: Current Meds Home Medications and Allergies Home Medications ?Medication ?Instructions ?Recorded ?Confirmed ?Type dutasteride 0.5 mg capsule 0.5 mg PO QDAY 06/25/22 05/04/25 History olmesartan 40 mg tablet 40 mg PO QDAY 06/25/22 05/04/25 History duloxetine 60 mg capsule,delayed 60 mg PO DAILY 05/25/24 05/04/25 History release ibuprofen 200 mg tablet 800 mg PO BID PRN pain 05/04/25 05/04/25 History linaclotide 1 cap PO DAILY 05/04/25 05/04/25 History linaclotide 145 mcg capsule 145 mcg PO DAILY 05/04/25 05/04/25 History (Linzess) olmesartan 40 1 tab PO DAILY 05/04/25 05/04/25 History mg-hydrochlorothiazide 12.5 mg tablet pregabalin 1 cap PO BID 05/04/25 05/04/25 History semaglutide (weight loss) 0.25 0.25 mg subcut Q7D 05/04/25 05/04/25 History mg/0.5 mL subcutaneous pen injector (Wegovy) Allergies Allergy/AdvReac Type Severity Reaction Status Date / Time No Known Allergies Allergy Verified 05/04/25 13:57 Exam Vital Signs Temp Pulse Resp BP Pulse Ox O2 Del Method O2 Flow Rate 97.6 F 89 17 96/62 97 Room Air 4 05/05/25 08:00 05/05/25 08:00 05/05/25 08:00 05/05/25 08:00 05/05/25 08:00 05/05/25 08:00 05/04/25 13:49 Constitutional Constitutional: no acute distress and obese Routine HEENT Exam Eye: Present PERRL (Anicteric sclera) Routine Abdominal Exam Abdominal: Present soft, normoactive bowel sounds and tenderness (Right upper quadrant tenderness to palpation with guarding, no rebound tenderness or peritonitis at this time); Absent distended Results Results: Laboratory Laboratory results: results reviewed Results: Imaging CT scan - abdomen: report reviewed and image reviewed CT scan - pelvis: report reviewed and image reviewed Assessment & Plan Problem List (1) Calculus of gallbladder with acute cholecystitis without obstruction: Status: Acute Plan Keep NPO with IVF and IV antibiotics. Will plan for laparoscopic possible open cholecystectomy. Risks include but not limited to infection, bleeding, injury to bowel, liver, stomach, bile duct, retained stone, bile leak, abdominal sepsis and or abdominal abscess, need for further procedure and or operation, pneumonia and blood clot discussed with the patient. Benefits and alternatives explained to him, all his questions answered, he agreed and consented to proceed with the operation.
[2025-05-05] MEDS: POT CHL ADDITIVE IV (09:51)
[2025-05-05] MEDS: [UNRECOGNIZED DRUG - OTHER] IV (09:51)
[2025-05-05] MEDS: PIPER/TAZO 3.375 GM PREMIX 3.375 GM/50 ML BAG IV ×3 (09:51→21:13)
[2025-05-05] MEDS: DEXTROSE IV (09:51)
--- NOTE | 2025-05-05 10:09 | ECHO_ITS ---
Transthoracic Echo Report Ht (in): 70 Wt (lb): 282 Exam Location: Echo Lab Status: Inpatient Bacon De Rinder: Valeria Escobar Indications: Procedure Performed: BP: 125 / 68 HR: 89 MEASUREMENTS (Male / Female) Normal Values 2D ECHO LV Diastolic Diameter PLAX 4.2 cm 4.2 - 5.9 / 3.9 - 5.3 cm LV Systolic Diameter PLAX 2.7 cm IVS Diastolic Thickness 1.0 cm 0.6 - 1.0 / 0.6 - 0.9 cm LVPW Diastolic Thickness 1.2 cm 0.6 - 1.0 / 0.6 - 0.9 cm LV Relative Wall Thickness 0.5 LA Volume Index 32.1 cm?/m? 16 - 28 cm?/m? M-MODE AV Cusp Separation MM 1.1 cm DOPPLER AV Peak Velocity 172.0 cm/s AV Peak Gradient 11.8 mmHg AV Mean Gradient 6.0 mmHg AV Velocity Time Integral 35.2 cm LVOT Peak Velocity 112.0 cm/s LVOT Peak Gradient 5.0 mmHg LVOT Velocity Time Integral 24.0 cm MV Area PHT 4.1 cm? Mitral E Point Velocity 68.3 cm/s Mitral A Point Velocity 84.0 cm/s Mitral E to A Ratio 0.8 LV E' Lateral Velocity 7.7 cm/s Mitral E to LV E' Lateral Ratio 8.8 LV E' Septal Velocity 7.5 cm/s Mitral E to LV E' Septal Ratio 9.1 TR Peak Velocity 232.0 cm/s TR Peak Gradient 21.5 mmHg PV Peak Velocity 115.0 cm/s PV Peak Gradient 5.3 mmHg FINDINGS Left Ventricle Normal left ventricular size, wall thickness, systolic function with no obvious regional wall motion abnormalities. There is grade I diastolic dysfunction of the left ventricle (impaired relaxation pattern). The ejection fraction is visually estimated at 55-60 %. Right Ventricle The right ventricle is normal in size and systolic function. The estimated right ventricular systolic pressure, 39 mmHg. Left Atrium The left atrial cavity size is mildly increased. Right Atrium The right atrium is normal by two-dimensional imaging, color flow and Doppler imaging with no structural abnormalities, no thrombus formation present. Atrial Septum The interatrial septum appears normal with no evidence of a shunt. Aorta The aorta is normal by two-dimensional, color flow and Doppler interrogation. Mitral Valve The mitral valve is normal by two-dimensional, color flow and Doppler interrogation. There is no significant mitral valve regurgitation, stenosis or prolapse. Aortic Valve The aortic valve is trileaflet and normal by two-dimensional, color flow and Doppler interrogation. There is no significant aortic valve regurgitation. Tricuspid Valve The tricuspid valve is normal by two-dimensional, color flow and Doppler interrogation. There is trace tricuspid valve regurgitation. Pulmonic Valve The pulmonic valve is not well visualized. There is no significant pulmonic valve regurgitation. Vessels The pulmonary artery appears normal. The inferior vena cava pulmonary and hepatic veins appear normal. Pericardium The pericardium is normal by two-dimensional imaging. There is no significant pericardial effusion. CONCLUSIONS Indication: Syncope Normal left ventricular size and function. Approximate ejection fraction is 55- 60%. The right ventricle is normal in size and systolic functio Mild dilated LA Mil TR Vicki Talavera (Electronically Signed) Final Date: 07 May 2025 16:36
--- NOTE | 2025-05-05 11:57 | PC.SS ---
SS attempted to meet with pt at bedside to complete inital assessment. Pt was out of room, currently in sx with Dr. Ugarte.
--- NOTE | 2025-05-05 12:53 | PC.SS ---
Rounding: SX today with Dr. Ugarte
--- NOTE | 2025-05-05 13:02 | PD.SUROPNT ---
Date of Procedure 05/05/25 Pre Op Diagnosis Cholelithiasis with acute cholecystitis Post Op Diagnosis Cholelithiasis with acute gangrenous cholecystitis Procedure Laparoscopic cholecystectomy Findings Distended and thick-walled gallbladder gangrenous in appearance with multiple gallstones Procedure Description Patient was brought into the operating room in supine position. After administration of general endotracheal anesthesia abdomen was prepped and draped in standard surgical manner. A Veress needle was inserted through the umbilicus and pneumoperitoneum was obtained up to 15 mmHg. The Veress needle was then removed, a 5 mm infraumbilical incision was made and the 5mm trocar was inserted. Laparoscopic camera was placed. Under direct visualization a laparoscopic camera a 10 mm trocar was placed in subxiphoid and two 5 mm trocars placed in right upper quadrant. The anterior surface of the liver was smooth without nodules or any lesions. There were extensive amount of inflammatory reaction in the right upper quadrant with omentum being adherent into the inferior aspect of the liver and gallbladder. Adhesions were bluntly divided and the omentum was retracted caudally. The gallbladder was identified and was noted to be very tense, thick-walled with gangrenous in appearance, multiple large gallstones and significant pericholecystic inflammation. The gallbladder was decompressed with an aspirator. It was retracted cephalad and laterally. Dissection started near the infundibulum of gallbladder where cystic duct and gallbladder junction clearly identified. There was significant amount of inflammatory reaction around the infundibulum of the gallbladder. The cystic duct was circumferentially dissected off the peritoneum and surrounding inflammatory tissue. The critical view of safety was clearly demonstrated. Cystic duct was then divided between 2 endoclips proximally and one distally. The cystic artery was similarly dissected and divided. The gallbladder was then from the liver bed using electrocautery. The gallbladder was then placed inside an Endo Catch and removed from the abdomen utilizing subxiphoid trocar site. The area was copiously and thoroughly washed and irrigated, all the fluid was suctioned and the suction fluid returned clear. Hemostasis achieved using electrocautery. Endoclips noted be in place and intact without any bleeding or any leakage. Hemostasis was adequate and satisfactory. The subxiphoid trocar sites fascial defect was closed with 0 Vicryl using Endo Closure device. Instruments and trocars removed, pneumoperitoneum was evacuated and the incisions closed with 4-0 Monocryl in subcuticular fashion. Instrument needle and sponge counts were all reported to be correct X2. Patient tolerated the procedure well, was extubated, breathing spontaneously and without difficulty and was transferred to postanesthesia care in stable condition. Anesthesia GETA and local Pathology / specimen Other (Gallbladder and contents) Estimated Blood Loss 50 Condition Stable Disposition PACU Surgeon Lisa Ugarte MD Surgical Staff Operation Date: 05/05/25 12:15 Case Staff HOSPITAL EDUCATION COORDINATOR: Sergio Acuna RN First Assistant: Divina Garner
--- NOTE | 2025-05-05 13:16 | SUR.PHASEI ---
pt received from OR in recovery bay 2. pt asleep but responds to voice, breathing unlabored on oxymask 8l. v/s stable. pt dressing to abd dermabond x4 cdi. report received from Malcom VARGAS and Jennie BERNARD.
--- NOTE | 2025-05-05 14:16 | ESPR_ITS ---
<Statement entered by Devyn Gonzalez MD - 05/05/25 16:19> Patient seen and assessed in sitting up in hospital chair, denies having any concerning symptoms at this time. Patient has scheduled laparoscopic cholecystectomy with general surgery. There was some concern for rectal wall thickening which could be contributing to the patient's history of IBS; moreover, patient has established care with general surgery outpatient and recommendation is to follow-up once discharged. Patient was started on IV antibiotics for the cholecystitis which we will discontinue after surgery. Other laboratory findings including patient's acute kidney injury is largely improving with IV fluid resuscitation. Will continue to monitor the patient for any acute changes. I have personally seen and examined the patient. I agree with the resident's assessment and plan as documented below. Devyn Gonzalez, PGY-2 Internal Medicine - [facility] Documentation for date of: 05/05/25 Subjective Subjective Interval history: No acute events overnight. This morning had no complaints. Reports that he does not recall any prodrome prior to falls. Has had 6-7 episodes of falls within the past 3 days. May have experienced dizziness, denies lightheadedness, diarrhea, tinnitus, or post-ictal state. Likely related to hypotension and dehydration, possible vertigo if patient truly experienced dizziness, lower suspicion for seizure at this time. Last episodes were a few months ago, protracted viral infection on cruise. WBC not improving, Dr Ugarte plans for cholecystectomy today, started on IV Zosyn. Renal function improving however not yet back to baseline, will encourage oral hydration. Orthostatic vitals negative. Will repeat echo as last 1 was done July 2024. Hemoglobin improved, patient denies any GI bleeding and FOBT negative; however has worsening perianal abscess. Reports currently not bleeding. He follows Dr. Leon outpatient for this, will defer management to her. Exam Vital Signs Temp Pulse Resp BP Pulse Ox O2 Del Method O2 Flow Rate 97.4 F 97 12 131/74 H 97 Room Air 2 05/05/25 13:45 05/05/25 13:45 05/05/25 13:45 05/05/25 13:45 05/05/25 13:45 05/05/25 08:00 05/05/25 13:45 Narrative Exam Physical Exam General: Awake and in no acute distress. Conversational and non-toxic appearing. Obese. HEENT: Normocephalic, atraumatic, mucous membranes moist. Heart: Regular rate and rhythm, normal S1 and S2, no murmurs. Lungs: Clear to auscultation with no wheezing or crackles. Abdomen: Soft, nondistended, very mild right upper quadrant tenderness, positive bowel sounds. No guarding or rebound tenderness. Neurologic: Alert and oriented x3, no gross neurological deficit, and patient able to move all 4 extremities. Extremities: No edema. Skin: No rash or ecchymoses. Objective Labs 05/05/25 05:20 05/05/25 05:20 Labs: Laboratory Results - last 24 hr 05/04/25 05/04/25 05/05/25 14:36 17:04 00:59 WBC 13.4 H RBC 3.71 L Hgb 9.8 L Hct 29.8 L MCV 80 MCH 26.4 MCHC 32.9 RDW Std Deviation 47.4 H Plt Count 244 Neut % (Auto) 82 H Lymph % (Auto) 8 L Curry % (Auto) 8 Eos % (Auto) 0 Baso % (Auto) 0 Neut # (Auto) 11.0 H Lymph # (Auto) 1.1 Curry # (Auto) 1.0 H Eos # (Auto) 0.1 Baso # (Auto) 0.0 Immature Gran # (Auto) 0.13 H Absolute Nucleated RBC 0.00 Immature Gran % 1 H Nucleated RBC % 0 PT 10.9 INR 1.0 APTT 23.6 Sodium 135 L Potassium 3.8 Chloride 101 Carbon Dioxide 21.4 Anion Gap 13 BUN 68 H Creatinine 2.9 H Estim Creat Clear Calc 33.7 L eGFR 23 L BUN/Creatinine Ratio 23 H Glucose 95 Calculated Osmolality 289 Lactic Acid 0.8 Calcium 8.7 Corrected Calcium 8.9 Phosphorus Magnesium 2.2 Iron 13 L TIBC 266 Iron Saturation 4 L Unsat Iron Binding 253 Ferritin 126 Total Bilirubin 0.4 AST 29 ALT 16 Alkaline Phosphatase 92 Lactate Dehydrogenase 152 Troponin I < 0.002 B-Natriuretic Peptide < 20 Total Protein 6.2 Albumin 3.7 Globulin 2.5 Albumin/Globulin Ratio 1.5 Carcinoembryonic Ag < 0.5 Vitamin B12 218 Folate 6.65 Ur Collection Type Clean Catch Urine Color Yellow Urine Clarity Hazy Urine pH 5.5 Ur Specific [place] 1.016 Urine Protein 1+ A Urine Glucose (UA) Negative Urine Ketones Negative Urine Blood Negative Urine Nitrite Negative Urine Bilirubin Negative Urine Urobilinogen (Auto) Negative Ur Leukocyte Esterase Negative Urine RBC 2 Urine WBC 7 H Ur Squamous Epith Cells 1 Urine Bacteria None Hyaline Casts 1 Ur Culture Indicated? Not Indicated Stool Occult Blood Negative Urine Opiates Screen Negative Urine Fentanyl Screen Negative Ur Barbiturates Screen Negative U Amphetamin/Meth Scrn Negative U Benzodiazepines Scrn Negative U Cocaine Metab Screen Negative U Marijuana (THC) Screen Negative 05/05/25 05:20 WBC 13.1 H RBC 3.95 L Hgb 10.3 L Hct 32.2 L MCV 82 MCH 26.1 MCHC 32.0 RDW Std Deviation 48.3 H Plt Count 250 Neut % (Auto) 84 H Lymph % (Auto) 8 L Curry % (Auto) 7 Eos % (Auto) 0 Baso % (Auto) 0 Neut # (Auto) 11.0 H Lymph # (Auto) 1.0 Curry # (Auto) 0.9 H Eos # (Auto) 0.0 Baso # (Auto) 0.0 Immature Gran # (Auto) 0.12 H Absolute Nucleated RBC 0.00 Immature Gran % 1 H Nucleated RBC % 0 PT INR APTT Sodium 141 Potassium 4.0 Chloride 105 Carbon Dioxide 24.1 Anion Gap 12 BUN 49 H Creatinine 1.8 H D Estim Creat Clear Calc 55.0 L eGFR 41 L BUN/Creatinine Ratio 27 H Glucose 114 H Calculated Osmolality 295 Lactic Acid Calcium 8.9 Corrected Calcium 9.0 Phosphorus 4.0 Magnesium 2.1 Iron TIBC Iron Saturation Unsat Iron Binding Ferritin Total Bilirubin 0.4 AST 24 ALT 24 Alkaline Phosphatase 98 Lactate Dehydrogenase Troponin I B-Natriuretic Peptide Total Protein 6.4 Albumin 3.9 Globulin 2.5 Albumin/Globulin Ratio 1.6 Carcinoembryonic Ag Vitamin B12 Folate Ur Collection Type Urine Color Urine Clarity Urine pH Ur Specific [place] Urine Protein Urine Glucose (UA) Urine Ketones Urine Blood Urine Nitrite Urine Bilirubin Urine Urobilinogen (Auto) Ur Leukocyte Esterase Urine RBC Urine WBC Ur Squamous Epith Cells Urine Bacteria Hyaline Casts Ur Culture Indicated? Stool Occult Blood Urine Opiates Screen Urine Fentanyl Screen Ur Barbiturates Screen U Amphetamin/Meth Scrn U Benzodiazepines Scrn U Cocaine Metab Screen U Marijuana (THC) Screen Quality Measures Quality Measures none Advance care planning discussed with:: patient Assessment & Plan Assessment Current Active Medications: Generic Name Dose Route Start Last Admin Trade Name Freq PRN Reason Stop Dose Admin Acetaminophen 650 mg 05/04/25 16:44 Acetaminophen 325 Mg Tablet PO 06/03/25 16:43 Q6H PRN Fever >101.5 and pain 1-3 Hydrocodone Bitart/Acetaminophen 1 tab 05/04/25 16:53 Hydrocodone/Apap 5/325 Tablet PO 05/09/25 16:52 Q8HR PRN Pain 7-10 Heparin Sodium (Porcine) 5,000 unit 05/04/25 22:00 05/05/25 06:04 Heparin Sod Inj 5000 Unit/Ml Vial SC 05/18/25 21:59 Not Given Q8HR KEY Potassium Chloride 20 meq/ 1,010 mls @ 75 mls/hr 05/05/25 08:47 05/05/25 09:51 Dextrose/Sodium Chloride IV 06/04/25 08:46 75 mls/hr .[id number] KEY Administration Piperacillin/Tazobactam/Dextrose 3.375 gm in 50 mls @ 12.5 mls/hr 05/05/25 14:00 Zosyn IV 05/12/25 13:59 Q8HR KEY Protocol Non-Formulary Medication 145 mcg 05/05/25 09:15 Linaclotide [Linzess] PO 06/04/25 09:14 DAILY KEY Pantoprazole Sodium 40 mg 05/05/25 09:00 05/05/25 08:35 Pantoprazole Inj 40 Mg Vial IVP 06/04/25 08:59 40 mg QDAY KEY Administration Tramadol HCl 50 mg 05/04/25 16:52 Tramadol Hcl 50 Mg Tablet PO 05/09/25 16:51 Q6HR PRN PAIN SCALE 4-6 (Moderate Plan Patient is a 64 year old male with PMH of HTN, Hardeep-en-Y gastric bypass (2000), perianal abscess/fistula who presented on 05/04 for multiple falls over the past 3 days, admitted for syncope work up. #Calculous cholcystitis #Leukocytosis Had history RUQ abdominal pain 3 days ago, improving after taking [place], ibuprofen, and Toradol. Currently dull and intermittent. CT A/P showed acute calculous cholecystitis and abnormal thickening of the right lateral wall of the rectum. Meets only 1/3 SIRS criteria (WBC 13.4, no fever, tachycardia, tachypnea), does not qualify as sepsis. No pain medications administered in ED. Plan: - Consulted surgeon Dr. Ugarte, jacob recommendations: laprascopic cholecystectomy today - S/p IV Zosyn x1 in ED - IV Zosyn 3.375 g (05/05- ), can discontinue post surgery - Pain regimen: Tylenol, norco 5 prn, morphine 3 mg #Syncope #Hypotension Reports 6-7 falls over the past 3 days, reports previous episodes months ago after halina virus on cruise, had bouts of diarrhea at that time resulting in hypotension. Episodes started after taking [place] 5 for his right upper quadrant pain. Denies lightheadedness, dizziness, tinnitis. Does not recall events preceding falls. Echo 07/30/2024 shows EF of 55 to 60%, normal LV and RV size and function. Only noted trace TR. Unlikely cardiogenic. Denies history of arrhythmias or seizures. EKG showed normal sinus rhythm with RBBB. Glucose 95 on admission. Orthostatic vitals negative. Most likely secondary to dehydration in setting of elevated creatinine and hypotension. Plan: - CTM BP - Hold antihypertensive meds - repeat echo #RAUDEL, improving Admission creatinine 2.9, baseline 1.0-1.2. No history of CKD per patient. Likely prerenal secondary to dehydration in conjunction with hypotension. S/p 1L NS x1, IV LR 1L bolus + 500 cc LR bolus Plan: - Encouraged oral rehydration - CTM renal panel #Anemia, normocytic #Perianal abscess #Hx IBS #Hx Hardeep-en-Y Admission Hgb 9.8, baseline 11-12. May be secondary to IBS and Hardeep-en-Y. Does not take multivitamins or iron at home. Takes Linzess at home intermittently. Iron panel: Iron 13, TIBC 266, iron sat 4, unsaturated iron binding 253, ferritin 126. Vitamin B12 and folate within normal limits. CEA less than 0.5. LILI versus bleeding from perianal abscess. CT A/P showed abnormal thickening of the right lateral wall of the rectum, differential would include rectal carcinoma, recommend direct inspection. Patient has known perianal abscess and fistula, currently being managed outpatient by Dr. Pedraza. Plan: - Consider starting patient on iron supplements once WBC improves - Follow up outpatient with Dr. Pedraza #Hx HTN #BPH Chronic problems. BP low on admission. Takes olmesartan and dutasteride at home. Pending official med rec. Plan: - Hold home dutasteride as may also affect blood pressure - Hold olmesartan as patient is hypotensive - CTM BP Health Maintenance Disposition: med surg for syncope work up DVT prophylaxis: heparin GI prophylaxis: protonix Diet: regular CODE STATUS: FULL Patient plan of care was discussed with the attending physician, Dr. Aguirre. Yanelis Mccartney, PGY-1 Attending Provider Attestation/Addendum I attest that I was physically present for the evaluation, physical examination, lab and imaging review of the patient with the residents. I discussed the case with the residents and agree with the findings and plans of care as documented above. At bedside this morning, patient states he is feeling better and denies new complaints. Patient is planned for cholecystectomy with general surgery today. Blood pressure continues to be soft. We will continue with IV antibitics untill patient has cholecystectomy. We will also complete further workup for syncope including ECHO. Consuelo Aguirre MD
--- NOTE | 2025-05-05 14:25 | SUR.PHASEI ---
pt awake and alert, breathing unlabored on 2l nc. v/s stable. pt dressing to abd dermabond x4 ports cdi. report called to Shawn BERNARD. pt will be transferred to room at this time.
[2025-05-05] MEDS: MORPHINE SULF INJ 4 MG/ML VIAL 3 MG IVP (20:13)
[2025-05-06] VITALS (7 sets, daily range): BP systolic 99–121; BP diastolic 60–83; PULSE 82–103; RESP 16–97; TEMP 36–36.6; O2SAT 94–97
[2025-05-06 05:57] LABS: Basophils # (Auto) 0.0 Thou/mm3 (0.0-0.2); Basophils % (Auto) 0 % (0-2.5); Eosinophils # (Auto) 0.1 Thou/mm3 (0.0-0.5); Eosinophils % (Auto) 1 % (0-10); Hematocrit 30.5 % (41.0-53.0); Hemoglobin 9.7 g/dL (13.5-16.0); Immature Granulocytes Auto 0.23 Thou/mm3 (0.00-0.00); Lymphocytes # (Auto) 1.2 Thou/mm3 (1.0-4.8); Lymphocytes % (Auto) 13 % (10-50); Mean Corpuscular HGB Conc 31.8 g/dl (31.0-37.0); Mean Corpuscular Hemoglobin 25.8 pg (25.0-35.0); Mean Corpuscular Volume 81 fL (80-100); Monocytes # (Auto) 0.9 Thou/mm3 (0.0-0.8); Monocytes % (Auto) 9 % (0-12); Neutrophils # (Auto) 7.3 Thou/mm3 (1.8-7.7); Neutrophils % (Auto) 75 % (37-80); Nucleated Red Blood Cell # 0.00 Thou/mm3 (0.00-0.00); Nucleated Red Blood Cell % 0 /100 WBC (0); Platelet Count 264 Thou/mm3 (140-440); RDW Standard Deviation 48.1 fL (35.1-43.9); Red Blood Count 3.76 Miln/mm3 (4.50-5.90); White Blood Count 9.7 Thou/mm3 (3.8-10.6)
[2025-05-06] MEDS: PIPER/TAZO 3.375 GM PREMIX 3.375 GM/50 ML BAG IV ×3 (06:19→21:28)
[2025-05-06] MEDS: MORPHINE SULF INJ 4 MG/ML VIAL 3 MG IVP (06:30)
[2025-05-06 06:34] LABS: Alanine Aminotransferase 43 U/L (10-49); Albumin, Serum 3.7 gm/dL (3.4-4.8); Albumin/Globulin Ratio 1.9 (1.2-2.2); Alkaline Phosphatase 119 U/L (46-116); Anion Gap 10 (7-16); Aspartate Amino Transferase 42 U/L (0-34); BUN/Creatinine Ratio 23 Ratio (12-20); Bilirubin,Total 0.6 mg/dL (0.3-1.2); Blood Urea Nitrogen 23 mg/dL (9-23); Calcium 8.7 mg/dL (8.3-10.6); Calcium (Corrected) 8.9 mg/dL (8.5-10.1); Carbon Dioxide 25.4 mMol/L (20.0-31.0); Chloride 105 mMol/L (98-107); Creatinine (Component) 1.0 mg/dL (0.6-1.3); Estimated Creatinine Clearance 99.0 mL/min (>60); Globulin 2.0 gm/dL (2.3-3.5); Glucose 124 mg/dL (74-106); Magnesium 1.8 mg/dL (1.6-2.6); Osmolality,Calculated 284 (275-295); Phosphorous 2.9 mg/dL (2.4-5.1); Potassium 3.8 mMol/L (3.4-5.1); Sodium 140 mMol/L (136-145); Total Protein 5.7 gm/dL (5.7-8.2); eGFR > 60 See Note
--- NOTE | 2025-05-06 07:21 | PC.NURSE ---
Pt. refuses bed alarm, pt. educated on fall risks and agrees to call for help.
--- NOTE | 2025-05-06 07:44 | PC.NURSE ---
Dr. Ugarte states coffee is OK. Per Dr. ugarte pt. will not be going home today. Gladys was gangrenous and pt. needs IV abx.
--- NOTE | 2025-05-06 12:30 | PD.SURPROG ---
Documentation for date of: 05/06/25 Subjective Subjective Narrative: Patient is seen and examined. Pain is improving. He is tolerating clear liquids. He is passing flatus and had a bowel movement Exam Vital Signs Temp Pulse Resp BP Pulse Ox O2 Del Method O2 Flow Rate 97 F 85 18 108/67 96 Room Air 2 05/06/25 12:00 05/06/25 12:00 05/06/25 12:00 05/06/25 12:00 05/06/25 12:00 05/06/25 12:00 05/05/25 20:00 Constitutional Constitutional: no acute distress Routine Abdominal Exam Comments: Abdomen is soft and nondistended. Incisions are clean, dry and intact Assessment & Plan Assessment Additional comments: Postop day #1 status post laparoscopic cholecystectomy Plan Continue IV antibiotics as patient had gangrenous cholecystitis. Will advance diet PROCEDURES: Procedures Laparoscopic cholecystectomy
--- NOTE | 2025-05-06 12:51 | PC.SS ---
Emanuel Biggs is a 64 year-old male admitted to [facility] for Sepsis. SS conducted bedside contact with the patient to complete initial assessment and to discuss discharge planning. Role and reason explained. Patient confirmed demographic information. Patient identifies his sister Vivian Carvalho [phone] as his surrogate decision maker. Pt states he is able to complete all ADL?s independent. Pt does not possesses any DME. Pts PCP is Naresh Sosa (last visit 1 week). Pharmacy of choice is [facility]. Discharge options discussed and the pt wishes to return home.? Pt grandfather will provide transport. No further intervention required at this time, bilingual social worker would be available to address any further concerns. DC Plan: Home Contact: Sister Address: Confirmed on face sheet PCP: Ian Aggarwal
--- NOTE | 2025-05-06 14:48 | ESPR_ITS ---
<Statement entered by Devyn Gonzalez MD - 05/06/25 16:11> Patient seen and assessed in hospital bed reporting improvement in symptoms and is requesting to be discharged. Patient's status post op day 1 from laparoscopic cholecystectomy for gangrenous cholecystitis. Per general surgery recommendations, patient will need to be continued on IV Zosyn with diet slowly advanced as tolerated. Will continue to monitor the patient for any acute change and expect discharge within the next 24 to 48 hours. I have personally seen and examined the patient. I agree with the resident's assessment and plan as documented below. Devyn Gonzalez, DO PGY-2 Internal Medicine - [facility] Documentation for date of: 05/06/25 Subjective Subjective Interval history: No acute events overnight. S/p laparoscopic cholecystectomy yesterday, found to have distended, gangrenous, and thick-walled gallbladder and appearance of multiple gallstones. Surgeon Dr. Ugarte would like to watch patient, continue IV Zosyn (started 05/05). Patient is tolerating clear liquids, advance diet as tolerated. No issues passing flatus or having bowel movements. Ambulating well. Endorses dull right-sided tenderness, proportionate to post procedural pain. WBC now within normal limits. Hemoglobin slightly down trended, likely secondary to procedure. Patient reports today that he recently donated blood in [place] at the end of March. May likely explain his low hemoglobin, baseline 11?12. Patient reports that baseline systolic blood pressure is usually 100s to 110s. Worked with PT today, denies any lightheadedness or balance issues. Exam Vital Signs Temp Pulse Resp BP Pulse Ox O2 Del Method O2 Flow Rate 97 F 85 18 108/67 96 Room Air 2 05/06/25 12:05/06/25 12:05/06/25 12:05/06/25 12:05/06/25 12:05/06/25 12:05/05/25 20:00 Narrative Exam Physical Exam General: Awake and in no acute distress. Conversational and non-toxic appearing. Obese. Sitting up in chair. HEENT: Normocephalic, atraumatic, mucous membranes moist. Heart: Regular rate and rhythm, normal S1 and S2, no murmurs. Lungs: Clear to auscultation with no wheezing or crackles. Abdomen: Soft, nondistended, diffuse tenderness of right upper and lower abdomen, positive bowel sounds. No guarding or rebound tenderness. Neurologic: Alert and oriented x3, no gross neurological deficit, and patient able to move all 4 extremities. Extremities: No edema. Skin: No rash or ecchymoses. Objective Labs 05/06/25 05:25 05/06/25 05:25 Labs: Laboratory Results - last 24 hr 05/06/25 05:25 WBC 9.7 RBC 3.76 L Hgb 9.7 L Hct 30.5 L MCV 81 MCH 25.8 MCHC 31.8 RDW Std Deviation 48.1 H Plt Count 264 Neut % (Auto) 75 Lymph % (Auto) 13 Forrest % (Auto) 9 Eos % (Auto) 1 Baso % (Auto) 0 Neut # (Auto) 7.3 Lymph # (Auto) 1.2 Forrest # (Auto) 0.9 H Eos # (Auto) 0.1 Baso # (Auto) 0.0 Immature Gran # (Auto) 0.23 H Absolute Nucleated RBC 0.00 Immature Gran % 2 H Nucleated RBC % 0 Sodium 140 Potassium 3.8 Chloride 105 Carbon Dioxide 25.4 Anion Gap 10 BUN 23 Creatinine 1.0 D Estim Creat Clear Calc 99.0 eGFR > 60 BUN/Creatinine Ratio 23 H Glucose 124 H Calculated Osmolality 284 Calcium 8.7 Corrected Calcium 8.9 Phosphorus 2.9 Magnesium 1.8 Total Bilirubin 0.6 AST 42 H ALT 43 Alkaline Phosphatase 119 H D Total Protein 5.7 Albumin 3.7 Globulin 2.0 L Albumin/Globulin Ratio 1.9 Quality Measures Quality Measures none Advance care planning discussed with:: patient Assessment & Plan Assessment Current Active Medications: Generic Name Dose Route Start Last Admin Trade Name Freq PRN Reason Stop Dose Admin Acetaminophen 650 mg 05/04/25 16:44 Acetaminophen 325 Mg Tablet PO 06/03/25 16:43 Q6H PRN Fever >101.5 and pain 1-3 Hydrocodone Bitart/Acetaminophen 1 tab 05/05/25 14:42 Hydrocodone/Apap 5/325 Tablet PO 05/09/25 16:52 Q8HR PRN PAIN SCALE 4-6 (Moderate Docusate Sodium 100 mg 05/05/25 21:00 05/06/25 09:28 Docusate Sod 100 Mg Capsule PO 06/04/25 20:59 Not Given BID KEY Protocol Piperacillin/Tazobactam/Dextrose 3.375 gm in 50 mls @ 12.5 mls/hr 05/05/25 14:00 05/06/25 14:21 Zosyn IV 05/12/25 13:59 12.5 mls/hr Q8HR KEY Administration Protocol Morphine Sulfate 3 mg 05/05/25 14:40 05/06/25 06:30 Morphine Sulf Inj 4 Mg/Ml Vial IVP 05/08/25 14:39 3 mg Q2H PRN Administration PAIN SCALE 7-10 (Severe Ondansetron HCl 4 mg 05/05/25 14:40 Ondansetron Inj 2 Mg/Ml Inj 2 Ml IVP 06/04/25 14:39 Q6HR PRN NAUSEA OR VOMITING Protocol Pantoprazole Sodium 40 mg 05/05/25 09:00 05/06/25 09:27 Pantoprazole Inj 40 Mg Vial IVP 06/04/25 08:59 40 mg QDAY KEY Administration Plan Patient is a 64 year old male with PMH of HTN, Hardeep-en-Y gastric bypass (2000), perianal abscess/fistula who presented on 05/04 for multiple falls over the past 3 days, admitted for syncope work up. #Calculous cholcystitis, gangrenous #S/p lap amy #Leukocytosis, resolved Had history RUQ abdominal pain 3 days ago, improving after taking Casscoe, ibuprofen, and Toradol. Currently dull and intermittent. CT A/P showed acute calculous cholecystitis and abnormal thickening of the right lateral wall of the rectum. Meets only 1/3 SIRS criteria (WBC 13.4, no fever, tachycardia, tachypnea), does not qualify as sepsis. No pain medications administered in ED. S/p IV Zosyn x1 in ED Plan: - Consulted surgeon Dr. Ugarte, appreciate recommendations: continue abx, encourage ambulation, advance diet as tolerated - IV Zosyn 3.375 g (05/05- - Pain regimen: Tylenol, norco 5 prn, morphine 3 mg #Syncope #Hypotension Reports 6-7 falls over the past 3 days, reports previous episodes months ago after halina virus on cruise, had bouts of diarrhea at that time resulting in hypotension. Episodes started after taking Casscoe 5 for his right upper quadrant pain. Denies lightheadedness, dizziness, tinnitis. Does not recall events preceding falls. Reports that he recently donated blood in [place] at the end of March, usually donates 8 times a year but had to decrease to 4 due to low blood pressures. Baseline SBP in the past 100-110s at PCP office. Echo 07/30/2024 shows EF of 55 to 60%, normal LV and RV size and function. Only noted trace TR. Unlikely cardiogenic. Denies history of arrhythmias or seizures. EKG showed normal sinus rhythm with RBBB. Glucose 95 on admission. Orthostatic vitals negative. Worked with PT, denied lightheadedness , dizziness, or imbalance. Most likely secondary to dehydration in setting of elevated creatinine and hypotension. Plan: - CTM BP - Hold antihypertensive meds - pending echo #RAUDEL, resolved Admission creatinine 2.9 -> 1.0, baseline 1.0-1.2. No history of CKD per patient. Likely prerenal secondary to dehydration in conjunction with hypotension. S/p 1L NS x1, IV LR 1L bolus + 500 cc LR bolus Plan: - Encouraged oral rehydration - CTM renal panel #Anemia, normocytic #Perianal abscess #Hx IBS #Hx Hardeep-en-Y Admission Hgb 9.8, baseline 11-12. May be secondary to IBS and Hardeep-en-Y. Does not take multivitamins or iron at home. Takes Linzess at home intermittently. Iron panel: Iron 13, TIBC 266, iron sat 4, unsaturated iron binding 253, ferritin 126. Vitamin B12 and folate within normal limits. CEA less than 0.5. LILI versus bleeding from perianal abscess. CT A/P showed abnormal thickening of the right lateral wall of the rectum, differential would include rectal carcinoma, recommend direct inspection. Patient has known perianal abscess and fistula, currently being managed outpatient by Dr. Pedraza. As above, patient reports he donated blood recently (end of March), likely cause of anemia. Plan: - Consider starting patient on iron supplements once WBC improves - Follow up outpatient with Dr. Pedraza #Hx HTN #BPH Chronic problems. BP low on admission. Takes olmesartan and dutasteride at home. Pending official med rec. Plan: - Hold home dutasteride as may also affect blood pressure - Hold olmesartan as patient is hypotensive - CTM BP Health Maintenance Disposition: med surg for syncope work up DVT prophylaxis: heparin GI prophylaxis: protonix Diet: regular CODE STATUS: FULL Patient plan of care was discussed with the attending physician, Dr. Aguirre. Yanelis Mccartney, PGY-1 Attending Provider Attestation/Addendum I attest that I was physically present for the evaluation, physical examination, lab and imaging review of the patient with the residents. I discussed the case with the residents and agree with the findings and plans of care as documented above. At bedside today, patient states she is feeling well. Abdominal pain is improving, only has pain whenever he moves. Has been tolerating diet well, denies any nausea and vomiting. Vital signs are stable lab results are also stable, shows improvement in kidney function, slight elevation on AST and ALT likely from procedure yesterday. Discussed with general surgery, recommended continuation of IV antibiotics given patient had gangrenous cholecystitis. We will continue with IV antibiotics and advance his diet. Awaiting echocardiography. Consuelo Aguirre MD
--- NOTE | 2025-05-06 15:02 | PC.SS ---
Rounding: On IV ABX, POD #2, Dc plan home Dr. Ugarte following
--- NOTE | 2025-05-06 16:42 | PC.PT ---
PT eval only. Patient is xI with bed mobility, transfers, and ambulation with the IV pole. Patient is safe to ambulate to the bathroom and in the halls with the IV pole. RN made aware.
--- NOTE | 2025-05-06 20:01 | PC.NURSE ---
Pt refusing bed alarms, educated patient on possible fall risk, patient verbalized understanding.
[2025-05-07] VITALS: BP 125/77; PULSE 81; RESP 16; TEMP 36.2; O2SAT 97
[2025-05-07 04:00] VITALS: BP 125/68; PULSE 83; RESP 16; TEMP 36.2; O2SAT 97
[2025-05-07] MEDS: PIPER/TAZO 3.375 GM PREMIX 3.375 GM/50 ML BAG IV ×2 (05:24→13:21)
[2025-05-07 06:19] LABS: Basophils # (Auto) 0.1 Thou/mm3 (0.0-0.2); Basophils % (Auto) 1 % (0-2.5); Eosinophils # (Auto) 0.3 Thou/mm3 (0.0-0.5); Eosinophils % (Auto) 3 % (0-10); Hematocrit 33.9 % (41.0-53.0); Hemoglobin 10.6 g/dL (13.5-16.0); Immature Granulocytes Auto 0.48 Thou/mm3 (0.00-0.00); Lymphocytes # (Auto) 1.6 Thou/mm3 (1.0-4.8); Lymphocytes % (Auto) 18 % (10-50); Mean Corpuscular HGB Conc 31.3 g/dl (31.0-37.0); Mean Corpuscular Hemoglobin 25.7 pg (25.0-35.0); Mean Corpuscular Volume 82 fL (80-100); Monocytes # (Auto) 0.8 Thou/mm3 (0.0-0.8); Monocytes % (Auto) 9 % (0-12); Neutrophils # (Auto) 6.0 Thou/mm3 (1.8-7.7); Neutrophils % (Auto) 65 % (37-80); Nucleated Red Blood Cell # 0.00 Thou/mm3 (0.00-0.00); Nucleated Red Blood Cell % 0 /100 WBC (0); Platelet Count 332 Thou/mm3 (140-440); RDW Standard Deviation 49.3 fL (35.1-43.9); Red Blood Count 4.13 Miln/mm3 (4.50-5.90); White Blood Count 9.2 Thou/mm3 (3.8-10.6)
[2025-05-07 06:44] LABS: Alanine Aminotransferase 48 U/L (10-49); Albumin, Serum 3.9 gm/dL (3.4-4.8); Albumin/Globulin Ratio 1.4 (1.2-2.2); Alkaline Phosphatase 140 U/L (46-116); Anion Gap 11 (7-16); Aspartate Amino Transferase 37 U/L (0-34); BUN/Creatinine Ratio 14 Ratio (12-20); Bilirubin,Total 0.4 mg/dL (0.3-1.2); Blood Urea Nitrogen 15 mg/dL (9-23); Calcium 9.2 mg/dL (8.3-10.6); Calcium (Corrected) 9.3 mg/dL (8.5-10.1); Carbon Dioxide 28.3 mMol/L (20.0-31.0); Chloride 104 mMol/L (98-107); Creatinine (Component) 1.1 mg/dL (0.6-1.3); Estimated Creatinine Clearance 90.0 mL/min (>60); Globulin 2.7 gm/dL (2.3-3.5); Glucose 99 mg/dL (74-106); Magnesium 1.9 mg/dL (1.6-2.6); Osmolality,Calculated 285 (275-295); Phosphorous 3.4 mg/dL (2.4-5.1); Potassium 4.0 mMol/L (3.4-5.1); Sodium 143 mMol/L (136-145); Total Protein 6.6 gm/dL (5.7-8.2); eGFR > 60 See Note
[2025-05-07 07:19] VITALS: PULSE 93; RESP 18; RESP 99
--- NOTE | 2025-05-07 07:33 | PC.NURSE ---
Patient refusing bed side alarm. Educated the patient on the importance of bed alarm being on and asking for help if he needs to get out of bed.
[2025-05-07 08:00] VITALS: BP 111/76; PULSE 79; RESP 18; TEMP 36.4; O2SAT 97
--- NOTE | 2025-05-07 09:19 | PC.SS ---
Follow up note: Possible d/c if ok by Dr. Ugarte.
--- NOTE | 2025-05-07 11:16 | PD.SURPROG ---
Documentation for date of: 05/07/25 Subjective Subjective Narrative: Patient is seen and examined. His pain is improving. He is tolerating diet without nausea or vomiting and having bowel movements. Exam Vital Signs Temp Pulse Resp BP Pulse Ox O2 Del Method O2 Flow Rate 97.6 F 79 18 111/76 97 Room Air 2 05/07/25 08:00 05/07/25 08:00 05/07/25 08:00 05/07/25 08:00 05/07/25 08:00 05/07/25 08:00 05/05/25 20:00 Constitutional Constitutional: no acute distress Routine Abdominal Exam Comments: Abdomen is soft and nondistended. Incisions are clean, dry and intact Assessment & Plan Assessment Additional comments: Postop day #3 status post laparoscopic cholecystectomy for gangrenous cholecystitis Plan May discharge home on oral antibiotics for 7 days. Follow-up with Dr Ugarte in 2 weeks PROCEDURES: Procedures Laparoscopic cholecystectomy
[2025-05-07 12:00] VITALS: BP 132/73; PULSE 86; RESP 18; TEMP 36.1; O2SAT 93
--- NOTE | 2025-05-07 14:38 | ESDS_ITS ---
Planned Discharge Date 05/07/25 DS: Providers Provider Date of admission: 05/04/25 16:44 Primary care physician: Naresh Sosa MD Admitting Provider: Yanelis Mccartney DO Attending Provider on Admission: Consuelo Aguirre MD Consults: 05/04/25 16:07 Consult to General Surgery Stat Comment: Consulting Provider: Lisa Ugarte 05/04/25 20:50 Referral [facility] Routine Comment: Referral Respiratory Therapy Routine Comment: 05/06/25 11:54 Referral Physical Therapy Routine Comment: Physician Instructions: Attending Provider on DC: Consuelo Aguirre MD Discharging Provider: Yanelis Mccartney DO DS: Diagnosis Problem List Completed Was Problem List Reviewed/Reconciled?: Yes Hospital Course Hospital Course Hospital course: Summary: 64-year-old male with a history of hypertension, Hardeep-en-Y gastric bypass (2000), perianal fistula, and IBS who was admitted on 05/04/25 for evaluation of recurrent falls and right upper quadrant abdominal pain. He had experienced multiple syncopal episodes over the preceding three days without prodrome or recall of events. Initial evaluation revealed hypotension, leukocytosis, anemia, and acute kidney injury. CT abdomen/pelvis demonstrated acute calculous cholecystitis and abnormal thickening of the right lateral rectal wall. He was started on IV fluids and received one dose of Zosyn in the ED. General surgery was consulted (Dr. Ugarte) and the patient underwent laparoscopic cholecystectomy on 05/05/25. Intraoperatively, the gallbladder was noted to be gangrenous, thick-walled, and containing multiple gallstones. Post- operatively, the patient was continued on IV Zosyn with diet gradually advanced as tolerated. His leukocytosis resolved, and he ambulated independently with PT without recurrent dizziness or imbalance. Regarding his syncope, evaluation included orthostatic vitals (negative), EKG (sinus rhythm with RBBB), and transthoracic echocardiogram which showed normal LV and RV size and systolic function, EF 55?60%, mildly dilated left atrium, and mild tricuspid regurgitation. Overall, cardiogenic etiology was considered less likely. Given history of dehydration, hypotension, NSAID/narcotic use, and recent blood donation, the episodes were attributed to transient hypotension. His blood pressures improved off antihypertensives, which were held during admission. His RAUDEL improved with IV fluid resuscitation, returning to baseline creatinine (1.0). His anemia (Hgb ~9.8, baseline 11?12) was attributed to recent blood donation in March. Iron studies revealed iron deficiency; supplementation to be considered outpatient once leukocytosis is fully resolved. His known perianal abscess/fistula and rectal wall thickening will require continued outpatient follow-up with Dr. Pedraza for further evaluation. At the time of discharge, the patient was afebrile, hemodynamically stable, ambulating independently, tolerating a regular diet, and reporting only mild post-surgical tenderness. Discharge Recommendations: Ciprofloxacin 500 mg twice a day for an additional 7 days Stop taking ibuprofen as this medication increase your risk of bleeding - take OTC tylenol instead as needed Continue all other medications Follow-up with Dr. Ugarte (general surgeon) within 1-2 weeks of discharge Follow-up with your PCP within 1-2 weeks of discharge If your symptoms worsen or if you develop new chest pain, shortness of breath, severe abdominal pain or bleeding - please come back to the ED immediately. Hospital Diagnoses: #Calculous cholcystitis, gangrenous #S/p lap amy 05/05/25 #Leukocytosis, resolved #Syncope #Hypotension, resolved #RAUDEL, resolved #Anemia, normocytic #Perianal abscess #Hx IBS #Hx Hardeep-en-Y #Hx HTN #BPH Disposition: Safe discharge home. Patient plan of care was discussed with the attending physician, Dr. Aguirre. Yanelis Mccartney, PGY-1 Time Spent with Patient Time attestation: Total time spent providing and/or coordinating discharge services: 33 min Time spent: Greater than 30 minutes Exam Vital Signs Temp Pulse Resp BP Pulse Ox O2 Del Method O2 Flow Rate 97.0 F 86 18 132/73 H 93 L Room Air 2 05/07/25 12:05/07/25 12:05/07/25 12:05/07/25 12:05/07/25 12:05/07/25 12:05/05/25 20:00 Narrative Exam Physical Exam General: Awake and in no acute distress. Conversational and non-toxic appearing. Obese. Sitting up in chair. HEENT: Normocephalic, atraumatic, mucous membranes moist. Heart: Regular rate and rhythm, normal S1 and S2, no murmurs. Lungs: Clear to auscultation with no wheezing or crackles. Abdomen: Soft, nondistended, mild diffuse tenderness of right upper and lower abdomen, positive bowel sounds. No guarding or rebound tenderness. Neurologic: Alert and oriented x3, no gross neurological deficit, and patient able to move all 4 extremities. Extremities: No edema. Skin: No rash or ecchymoses. Discharge Plan Plan Patient Disposition: HOME (Self Care) Patient condition on transfer: Stable Care Plan Goals: Ciprofloxacin 500 mg twice a day for an additional 7 days Stop taking ibuprofen as this medication increase your risk of bleeding - take OTC tylenol instead as needed Continue all other medications Follow-up with Dr. Ugarte (general surgeon) within 1-2 weeks of discharge Follow-up with your PCP within 1-2 weeks of discharge If your symptoms worsen or if you develop new chest pain, shortness of breath, severe abdominal pain or bleeding - please come back to the ED immediately. Prescriptions/Referrals Prescriptions/Med Rec: New ciprofloxacin HCl 500 mg tablet 500 mg PO BID 7 Days Qty: 14 0RF Continued mupirocin 2 % ointment 1 applic topical BID Qty: 22 1RF Patient Comments: anal abscess. It was draining, but not in the last couple of days. dutasteride 0.5 mg capsule 0.5 mg PO QDAY Patient Comments: TAKE 1 CAPSULE BY MOUTH EVERY DAY duloxetine 60 mg capsule,delayed release(DR/EC) 60 mg PO DAILY olmesartan-hydrochlorothiazide 40-12.5 mg tablet 1 tab PO DAILY pregabalin 1 cap PO BID Wegovy 0.25 mg/0.5 mL pen injector 0.25 mg SUBCUT Q7D Patient Comments: INJECT 0.25MG SUBCUTANEOUSLY EVERY Linzess 145 mcg capsule 145 mcg PO DAILY Discontinued olmesartan 40 mg tablet 40 mg PO QDAY Patient Comments: TAKE 1 TABLET BY MOUTH EVERY DAY AT DINNER oxycodone-acetaminophen [Percocet] 5-325 mg tablet 1 tab PO Q6H MDD 6 tabs PRN (Reason: pain) Qty: 30 0RF linaclotide [Linzess] 1 cap PO DAILY ibuprofen 200 mg tablet 800 mg PO BID PRN (Reason: pain) Rx Instructions: prn stomach pain/cramps. over the counter ibuprofen 600 mg tablet 600 mg PO Q6H PRN (Reason: pain) Qty: 20 0RF Referrals: Lisa Ugarte MD [Physician, General Surgery] Naresh Sosa MD [Primary Care Provider, Family Practice] Patient/Caregiver Discharge Instructions Education Materials: Preventing Surgical Site Infections Print Language: Honduran Activity Restrictions/Additional Instructions: May shower . Avoid lifting, straining, pulling or pushing for 4 weeks. May take over the counter laxatives if no bowel movement in 2 days. Follow up with Dr. Ugarte in 2 weeks, call [phone] for an appointment. Continue low-fat diet for 1 week then advance diet as tolerated. Stand Alone Forms: [facility] Award Info., Patient Portal Info Letter Discharge Order Discharge Orders: Discharge (Routine); Ordered 05/07/25 Ordered By: Devyn Gonzalez Quality Discharge Quality Measures VTE prophylaxis MD Attestestation MD Attestation I attest that I was physically present for the evaluation, physical examination, lab and imaging review of the patient with the residents. I discussed the case with the residents and agree with the findings and plans of care as documented above. At bedside today, patient states she is feeling better and denies new complaints.? His abdominal pain has been consistently improving.? Has been tolerating diet without nausea or vomiting.? Has been able to have bowel movements as well.? General surgery following closely, patient is stable for discharge from surgery on oral antibiotics.? Patient has not have another episode of syncope, echocardiography showed normal left ventricular size and function with. Syncope episodes likely secondary to his low blood pressure, ongoing illness. Vital signs are currently stable including blood pressure, patient deemed stable for discharge on oral ciprofloxacin and his home medications. Recommended to follow-up with his PCP and general surgery in 1 to 2 weeks of discharge. Consuelo Aguirre MD
--- NOTE | 2025-05-07 15:56 | PC.NURSE ---
Patient was told he was going to discharge this morning. I called Dr Gonzalez and he notified me DR. Beck needs to read the echo. Once he does and is ok with echo they will put DC orders. As I am writing this note patient is here at the nurses station. I explained to patient what doctors are waiting for in order for discharge orders to be put in.
--- NOTE | 2025-05-07 18:21 | PC.NURSE ---
Patient during discharge was very disrespectful and demanding. Started signing discharge papers and then stopped. He would not continue till I took IV out. I took IV out and he continued to sign. I quickly found Jaime and a wheelchair. Jaime took patient down.
== END 2025-05-07 18:15 | disposition home or self-care (01) | DRG 418 ==
LOC: SERX 18:15 → SERHOLD 18:20 → S3SX 21:08 → SERHOLD 05-05 06:26
PROVIDERS: Registered Nurse General Practice; Surgery; Emergency Provider Emergency Medicine; PCP Family Medicine; Visit Provider Student in an Organized Health Care Education/Training Program
PROC: 0FT44ZZ Resection of Gallbladder, Percutaneous Endoscopic Approach (ICD-10-PCS; CPT 47562; principal; 2025-05-05 12:00)
DX: K80.00 Calculus of gallbladder with acute cholecystitis without obstruction (principal); K61.0 Anal abscess; N17.9 Acute kidney failure, unspecified; K82.A1 Gangrene of gallbladder in cholecystitis; Z98.84 Bariatric surgery status; I10 Essential (primary) hypertension; I45.10 Unspecified right bundle-branch block; N40.0 Benign prostatic hyperplasia without lower urinary tract symptoms; K66.0 Peritoneal adhesions (postprocedural) (postinfection); I95.9 Hypotension, unspecified; E86.0 Dehydration; D64.89 Other specified anemias; Z79.85 Long-term (current) use of injectable non-insulin antidiabetic drugs; R29.6 Repeated falls; Z87.891 Personal history of nicotine dependence
CPT/HCPCS: 36415; 74176; 80053; 80307; 81001; 82270; 82378; 82607; 82728; 82746; 83540; 83550; 83605; 83615; 83735; 83880; 84100; 84484; 85025; 85610; 85730; 93005; 93306; 96361; 96365; 96372; 96375; 97161; 99284; A4217; A4649; J0694; J1171; J1644; J2250; J2270; J2371; J2470; J2543; J2704; J3010; J3480; J3490; J7030; J7042; J7120

== ENCOUNTER 2025-06-07 13:25 | Outpatient (AMB) | payer MEDICARE, SELFPAY ==
[2025-06-07 13:46] VITALS: BP 111/75; PULSE 98; RESP 18; TEMP 36; O2SAT 97; BMI 38.9
--- NOTE | 2025-06-07 13:46 | PD.GSCLVISIT ---
[facility] - [facility] 06/07/25 13:46 Height 1.78 m Height Method Measured Weight 123.179 kg Weight Measurement Method Standing Scale BMI 38.9 BP 111/75 Blood Pressure Source Automatic Cuff Blood Pressure Location Left Upper Arm Position Sitting Respiration 18 Pulse 98 Pulse Source Monitor Temp 96.8 F Temp Source Temporal Artery Scan Pulse Oximetry (%) 97 Oxygen Delivery Method Room Air Med/Allergies Allergies & Medications Allergies No Known Allergies Allergy (Verified 06/07/25 13:47) Medication Reconciliation dutasteride 0.5 mg capsule 0.5 mg PO QDAY 06/25/22 [History Confirmed 06/07/25] duloxetine 60 mg capsule,delayed release 60 mg PO DAILY 05/25/24 [History Confirmed 06/07/25] mupirocin 2 % topical ointment 1 applic topical BID #22 grams 07/27/24 [Rx Confirmed 06/07/25] linaclotide 145 mcg capsule (Linzess) 145 mcg PO DAILY 05/04/25 [History Confirmed 06/07/25] olmesartan 40 mg-hydrochlorothiazide 12.5 mg tablet 1 tab PO DAILY 05/04/25 [History Confirmed 06/07/25] pregabalin 1 cap PO BID 05/04/25 [History Confirmed 06/07/25] semaglutide (weight loss) 0.25 mg/0.5 mL subcutaneous pen injector (Wegovy) 0.25 mg subcut Q7D 05/04/25 [History Confirmed 06/07/25] MA Intake Visit Data Collection New Patient or Established: Established Patient (seen at [facility] within 3 years) Seen by Clinical Staff ONLY (RN/MA): No Reason for Visit:: ANAL FISTULA FOLLOW UP Pain Present Currently: No Pain Scale Used: Dewey-Mayers/Numerical Sticker Machine Operator Required: No PCP or OBGYN visit in last 3 months: Yes Hx Now: No Do You Feel Safe at Home: Yes Authorities Contacted: N/A Smoking Status Smoking Status: Never smoker Immunization / Flu Flu Vaccine in the Last 12 Months: No Flu Vaccine Exclusion Criteria: No Exclusion Criteria Past Medical History Past Medical History NEUROLOGIC: Negative Neurological Disorders or Seizures CARDIAC: Positive Cardiac Disorders and Hypertension; Negative Congestive Heart Failure RESPIRATORY: Negative Chronic Obstructive Pulmonary Disease (COPD) GASTROINTESTINAL: Positive Gastrointestinal Disorders (bariatric surgery 2000-intermittent issues with stomach) and Obesity GENITOURINARY: Positive Genitourinary Disorders (difficulty voiding due to enlarge prostate) and Benign Prostatic Hyperplasia; Negative Renal Disease MUSCULOSKELETAL: Positive Fibromyalgia ENDOCRINE: Negative Endocrine Disorders, Diabetes Mellitus Type 1 or Diabetes Mellitus Type 2 HEMATOLOGIC: Positive Blood Disorders and Anemia (a little bit) OTHER HISTORY: Positive Hospitalization and Falls (right shoulder pain); Negative Autoimmune Disease, Developmental Delay, Shingles, Blood Transfusions, Blood Transfusion Reaction, Anesthesia Reactions or Cancer Family History FAMILY HISTORY: Negative Family Psychiatric Problems, Family Respiratory Disorders, Family Cardiac Disorders (hypertension, stroke-mother,sister), Family Gastrointestinal Problems, Family Cancer, Family Surgery or Family Anesthesia Reaction Surgical History SURGICAL: Positive Gastric Bypass Surgery and Bowel Surgery (herniated colon- surgery done) Social History SMOKING STATUS: Smoking status: Never smoker SECOND HAND EXPOSURE: second hand exposure: No ALCOHOL: Alcohol Intake: Current ALCOHOL FREQUENCY: Alcohol Intake Frequency: holidays/special occasions only HOUSING: Housing: House LIVES WITH: Lives With: Alone HPI HPI Narrative HISTORY OF PRESENT ILLNESS I, Valeria Pedraza, have obtained verbal consent from the patient, to be recorded during this encounter which may include, but not limited to, medical history, examination, treatment plans, and relevant health information.? Patient was informed that recording will be read and reviewed by myself before inclusion in the medical chart. 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 He has been experiencing drainage from the fistula for approximately 10 days, with the onset of symptoms noted even earlier. The drainage is accompanied by a throbbing pain. He reports daily, continuous drainage, which he manages with dressings. He describes a burning sensation on his skin when the fistula drains, suggesting possible excoriation due to his attempts at maintaining cleanliness. He expresses frustration with the ongoing issue and is considering surgical intervention. He has been using Epsom salt for topical application but admits to inconsistent use of sitz baths. His bowel movements are regular, aided by Linzess, which typically results in loose stools. He occasionally experiences formed stools but has not observed any correlation between the consistency of his stools and the fistula drainage. Constipation is not a concern for him. He also mentions a prostate issue that occasionally impedes urination, for which he takes dutasteride. However, he did not experience this problem during his recent hospital stay when he underwent cholecystectomy for gangrenous cholecystitis on 05/05/25 3. Prostate issues. Occasional difficulty urinating due to prostate issues is reported, with dutasteride being taken for management. Symptoms are variable but have not been significant recently. ROS Review of Systems Systems Reviewed: All systems reviewed, normal except as documented Objective/Exam General General Appearance: alert, cooperative and well groomed Resp Respiratory exam: Absent respiratory distress Rectal Rectal exam: Present other (at the posterior midline there is an ulcerated area of skin where pt states he has been applying epsom salt. No erythema or fluctuance. At the right posterior perianal region there is an external fistula opening, no surrounding erythema but it is tender and his dressing contains yellow drainage) Assessment & Plan Diagnosis / Problem List (1) Perianal fistula: Status: Acute Assessment & Plan: Drainage from the anal fistula has been ongoing for approximately two weeks, accompanied by throbbing pain. Examination reveals drainage and excoriation of the skin around the fistula. The use of Epsom salt for debridement may be causing skin irritation. Antibiotics are not recommended as there is no sign of infection. A two-stage surgical intervention was discussed, involving the placement of a seton to facilitate continuous drainage and subsequent scar formation to aid healing. The second stage would involve the removal of the seton and excision of the tract. The procedure could be performed in 06/2025, with no overnight stay required. Discontinuation of Epsom salt and sitz baths in warm water for pain relief were advised. All questions were answered and pt is agreeable to proceeding Advanced Care Planning Advance care planning discussed with:: other Office Procedures GNS Level of Care Nursing/Assessment Patient Status: Established Patient Nursing Assessment/Reassesment: Medication Reconciliation, Update PMH in EMR and Vital Signs Coordination of Care: Complex Care and Chronic Disease 1-5, Education Complex Pt/Fam, Consent,records obtained, informed consent, Results/Orders obtained and Staff clarify orders Established Patient Charge Established Patient Point Assignment: 95 Established Patient Point Charge: EP Level 3 (80-115) Patient Portal Questionaires Social History Living Situation History Housing: House Tobacco History Smoking Status: Never smoker Second Hand Smoke Exposure: No Alcohol History Alcohol Intake: Current Alcohol Intake Frequency: holidays/special occasions only Domestic Abuse History Do You Feel Safe at Home: Yes Review of Systems Report any current symptoms Only answer those that you have currently: Past Medical History Past Medical History Have you ever been diagnosed with any of the following: Neurological Problems Seizures: No Cardiology Problems Congestive Heart Failure: No Hypertension: Yes Respiratory Problems Chronic Obstructive Pulmonary Disease (COPD): No Stomache/Intestinal Problems Obesity: Yes Genital/Urinary Problems Renal Disease: No Benign Prostatic Hyperplasia: Yes Musculoskeletal Problems Fibromyalgia: Yes Endocrine Problems Diabetes Mellitus Type 1: No Diabetes Mellitus Type 2: No Blood Problems Anemia: Yes (a little bit) Other Problems Hospitalization: Yes Autoimmune Disease: No Developmental Delay: No Shingles: No Falls: Yes (right shoulder pain) Blood Transfusions: No Blood Transfusion Reaction: No Anesthesia Reactions: No Cancer: No
== END 2025-06-07 14:16 | disposition home or self-care (01) ==
LOC: HODSRG 13:25
PROVIDERS: PCP Family Medicine; Referring Provider Family Medicine; Supervising Provider Surgery; Visit Provider Surgery
DX: K60.30 Anal fistula, unspecified (principal); I10 Essential (primary) hypertension; E66.9 Obesity, unspecified; Z68.38 Body mass index [BMI] 38.0-38.9, adult
CPT/HCPCS: 99213; G0463

== ENCOUNTER → 2025-06-16 | Outpatient (CLI) | payer MEDICARE, SELFPAY ==
[2025-06-16 12:39] LABS: Collection Type, Urine Clean Catch
[2025-06-16 12:48] LABS: Basophils # (Auto) 0.0 Thou/mm3 (0.0-0.2); Basophils % (Auto) 0 % (0-2.5); Eosinophils # (Auto) 0.1 Thou/mm3 (0.0-0.5); Eosinophils % (Auto) 1 % (0-10); Hematocrit 38.8 % (41.0-53.0); Hemoglobin 12.4 g/dL (13.5-16.0); Immature Granulocytes Auto 0.02 Thou/mm3 (0.00-0.00); Lymphocytes # (Auto) 1.9 Thou/mm3 (1.0-4.8); Lymphocytes % (Auto) 24 % (10-50); Mean Corpuscular HGB Conc 32.0 g/dl (31.0-37.0); Mean Corpuscular Hemoglobin 26.2 pg (25.0-35.0); Mean Corpuscular Volume 82 fL (80-100); Monocytes # (Auto) 0.5 Thou/mm3 (0.0-0.8); Monocytes % (Auto) 6 % (0-12); Neutrophils # (Auto) 5.2 Thou/mm3 (1.8-7.7); Neutrophils % (Auto) 68 % (37-80); Nucleated Red Blood Cell # 0.00 Thou/mm3 (0.00-0.00); Nucleated Red Blood Cell % 0 /100 WBC (0); Platelet Count 301 Thou/mm3 (140-440); RDW Standard Deviation 45.7 fL (35.1-43.9); Red Blood Count 4.73 Miln/mm3 (4.50-5.90); White Blood Count 7.7 Thou/mm3 (3.8-10.6)
[2025-06-16 13:09] LABS: Bilirubin,Urine Negative (Negative); Blood,Urine Negative (Negative); Clarity,Urine Clear (Clear/Hazy); Color,Urine Lt-Yellow (Lt Yel-Yel); Glucose, Urine Negative (Negative); Ketones,Urine Negative (Negative); Leukocyte Esterase,Urine Negative (Negative); Nitrite,Urine Negative (Negative); PH,Urine 5.5 (5.0-7.0); Protein,Urine Negative (Neg - Trace); RBC,Urine 2 /hpf (0-3); Specific Gravity,Urine 1.022 (1.001-1.035); Squamous Epithelial Cell,Urine 1 /hpf (0-5); Urobilinogen,Urine Negative mg/dL (0.0-1.0); WBC,Urine 1 /hpf (0-5)
[2025-06-16 13:10] LABS: Glucose Estimated Average 111 mg/dL (80-131); Hemoglobin A1C 5.5 % Hgb (4.8-6.0)
[2025-06-16 13:15] LABS: Ferritin 10 ng/mL (10.5-307.3); Vitamin D 25 Hydroxy Total 28.5 ng/mL (7.3-40.2)
[2025-06-16 13:20] LABS: Alanine Aminotransferase 16 U/L (10-49); Albumin, Serum 5.1 gm/dL (3.4-4.8); Albumin/Globulin Ratio 2.3 (1.2-2.2); Alkaline Phosphatase 119 U/L (46-116); Anion Gap 10 (7-16); Aspartate Amino Transferase 20 U/L (0-34); BUN/Creatinine Ratio 19 Ratio (12-20); Bilirubin,Total 0.5 mg/dL (0.3-1.2); Blood Urea Nitrogen 21 mg/dL (9-23); Calcium 9.5 mg/dL (8.3-10.6); Calcium (Corrected) 9.5 mg/dL (8.5-10.1); Carbon Dioxide 25.9 mMol/L (20.0-31.0); Cardiac Risk Estimate 3.5 RATIO (4.0-6.7); Chloride 108 mMol/L (98-107); Cholesterol 159 mg/dL (132-200); Creatinine (Component) 1.1 mg/dL (0.6-1.3); Globulin 2.2 gm/dL (2.3-3.5); Glucose 101 mg/dL (74-106); HDL Cholesterol 46 mg/dL (40-60); LDL Cholesterol,Calculated 80 mg/dL (0-130); Magnesium 2.0 mg/dL (1.6-2.6); Osmolality,Calculated 289 (275-295); Phosphorous 4.1 mg/dL (2.4-5.1); Potassium 4.9 mMol/L (3.4-5.1); Sodium 144 mMol/L (136-145); Thyroid Stimulating Hormone 3.82 uIU/mL (0.55-4.78); Total Protein 7.3 gm/dL (5.7-8.2); Triglycerides 166 mg/dL (30-150); eGFR > 60 See Note
[2025-06-24 06:29] LABS: Testosterone, Free,Dialysis 87.0 pg/mL (35.0-155.0); Testosterone, Total, Dialysis 631 ng/dL (250-1100)
== END | disposition home or self-care (01) ==
LOC: COPL 11:59
PROVIDERS: PCP Internal Medicine; Referring Provider Internal Medicine; Visit Provider Internal Medicine
DX: Z00.00 Encounter for general adult medical examination without abnormal findings (principal); E29.1 Testicular hypofunction; I10 Essential (primary) hypertension; R73.03 Prediabetes
CPT/HCPCS: 36415; 80053; 80061; 81001; 82306; 82728; 83036; 83735; 84100; 84402; 84403; 84443; 85025

== ENCOUNTER 2025-06-30 05:45 | Day surgery (SDC) | payer MEDICARE, SELFPAY ==
[2025-06-28 08:58] VITALS: BMI 38.7
[2025-06-28 10:38] LABS: Basophils # (Auto) 0.0 Thou/mm3 (0.0-0.2); Basophils % (Auto) 0 % (0-2.5); Eosinophils # (Auto) 0.1 Thou/mm3 (0.0-0.5); Eosinophils % (Auto) 2 % (0-10); Hematocrit 41.2 % (41.0-53.0); Hemoglobin 13.1 g/dL (13.5-16.0); Immature Granulocytes Auto 0.03 Thou/mm3 (0.00-0.00); Lymphocytes # (Auto) 2.0 Thou/mm3 (1.0-4.8); Lymphocytes % (Auto) 21 % (10-50); Mean Corpuscular HGB Conc 31.8 g/dl (31.0-37.0); Mean Corpuscular Hemoglobin 26.5 pg (25.0-35.0); Mean Corpuscular Volume 83 fL (80-100); Monocytes # (Auto) 0.8 Thou/mm3 (0.0-0.8); Monocytes % (Auto) 8 % (0-12); Neutrophils # (Auto) 6.6 Thou/mm3 (1.8-7.7); Neutrophils % (Auto) 69 % (37-80); Nucleated Red Blood Cell # 0.00 Thou/mm3 (0.00-0.00); Nucleated Red Blood Cell % 0 /100 WBC (0); Platelet Count 308 Thou/mm3 (140-440); RDW Standard Deviation 46.8 fL (35.1-43.9); Red Blood Count 4.94 Miln/mm3 (4.50-5.90); White Blood Count 9.5 Thou/mm3 (3.8-10.6)
[2025-06-28 10:59] LABS: Alanine Aminotransferase 12 U/L (10-49); Albumin, Serum 5.1 gm/dL (3.4-4.8); Albumin/Globulin Ratio 2.0 (1.2-2.2); Alkaline Phosphatase 124 U/L (46-116); Anion Gap 10 (7-16); Aspartate Amino Transferase 21 U/L (0-34); BUN/Creatinine Ratio 19 Ratio (12-20); Bilirubin,Total 0.3 mg/dL (0.3-1.2); Blood Urea Nitrogen 21 mg/dL (9-23); Calcium 9.8 mg/dL (8.3-10.6); Calcium (Corrected) 9.8 mg/dL (8.5-10.1); Carbon Dioxide 23.6 mMol/L (20.0-31.0); Chloride 110 mMol/L (98-107); Creatinine (Component) 1.1 mg/dL (0.6-1.3); Estimated Creatinine Clearance 87.9 mL/min (>60); Globulin 2.5 gm/dL (2.3-3.5); Glucose 94 mg/dL (74-106); Osmolality,Calculated 289 (275-295); Potassium 4.8 mMol/L (3.4-5.1); Sodium 144 mMol/L (136-145); Total Protein 7.6 gm/dL (5.7-8.2); eGFR > 60 See Note
[2025-06-28 11:02] LABS: INR 0.9 (0.9-1.3); Partial Thromboplastin Time 26.2 Seconds (22.0-36.0); Prothrombin Time 10.0 Seconds (9.0-12.2)
[2025-06-30] VITALS (7 sets, daily range): BP systolic 95–124; BP diastolic 57–70; PULSE 73–83; RESP 12–20; TEMP 36.6–36.9; O2SAT 95–100; BMI 38.2
--- NOTE | 2025-06-30 07:18 | CHAP ---
Visited briefly with patient and prayed for upcoming procedure.
--- NOTE | 2025-06-30 08:06 | PD.SUROPNT ---
Date of Procedure 06/30/25 Pre Op Diagnosis Perianal fistula Post Op Diagnosis Same Procedure Examination under anesthesia, placement of seton Findings Right perianal fistula Procedure Description After discussion of risks and benefits, pt was brought to OR and MAC anesthesia was induced. He was placed in lithotomy position with proper padding and was prepped and draped in the usual sterile fashion. After timeout a HOMERO was performed which was normal. A lubricated Loaiza retractor was placed into the anal canal. The external opening of the perianal fistula was seen at the right posterior perianal region approx 2cm from the anal verge. A probe was placed into the external opening and easily tracked into the internal opening at the anal canal. A seton (vessel loop) was tied to the probe with a 0 silk tie and brought back through the external opening. The seton was then tied to itself using three 0 silk interrupted ties. A local and right pudendal nerve block were performed for a total of 20cc of 0.5% marcaine. Pt was returned to supine position and brought to PACU in stable condition Pathology / specimen None Estimated Blood Loss 10 Surgeon Valeria Pedraza MD Surgical Staff Operation Date: 06/30/25 07:45 Case Staff CORPORATE PILOT: Princess Thi
--- NOTE | 2025-06-30 08:09 | PD.SURDS ---
Planned Discharge Date 06/30/25 DS: Providers Provider Primary care physician: Orlando Landon MD Attending Provider on Admission: Valeria Pedraza MD Attending Provider on DC: Valeria Pedraza MD Discharging Provider: Valeria Pedraza MD Diagnosis Discharge Diagnosis (1) Perianal fistula: Status: Acute Problem List Completed Was Problem List Reviewed/Reconciled?: Yes Exam Vital Signs Temp Pulse Resp BP Pulse Ox 98.5 F 75 12 124/70 95 06/30/25 06:50 06/30/25 06:50 06/30/25 06:50 06/30/25 06:50 06/30/25 06:50 Discharge Plan Plan Patient Disposition: HOME (Self Care) Prescriptions/Referrals Prescriptions/Med Rec: New oxycodone-acetaminophen [Percocet] 5-325 mg tablet 1 tab PO Q4H MDD 6 tabs PRN (Reason: pain) Qty: 30 0RF Rx Instructions: Take 1 tablet as needed every 4-6 hours for moderate to severe pain No Action duloxetine 60 mg capsule,delayed release(DR/EC) 60 mg PO DAILY olmesartan-hydrochlorothiazide 40-12.5 mg tablet 1 tab PO DAILY Wegovy 0.25 mg/0.5 mL pen injector 0.25 mg SUBCUT Q7D Patient Comments: INJECT 0.25MG SUBCUTANEOUSLY EVERY Linzess 145 mcg capsule 145 mcg PO DAILY Referrals: Valeria Pedraza MD [Physician, General Surgery] Orlando Landon MD [Primary Care Provider, Nephrology] Patient/Caregiver Discharge Instructions Other Discharge Activity Instructions:: You may resume sitz baths as needed starting today for pain, bleeding, itching or swelling Avoid constipation or diarrhea If you develop pain not controlled by medication, fever and/or difficulty urinating please seek care in ER Education Materials: ED Anal Fistula Print Language: Azerbaijani Stand Alone Forms: Allison Award Info., Patient Portal Info Letter Discharge Order Discharge Orders: Discharge (Routine); Ordered 06/30/25 Ordered By: Valeria Pedraza Results Results: Laboratory Laboratory results: results reviewed PROCEDURES: Procedures Examination under anesthesia, placement of seton
--- NOTE | 2025-06-30 08:10 | SUR.PHASEI ---
pt received from OR in recovery bay 7. pt obtunded, breathing unlabored on oxymask 6l, oral airway in place. v/s stable. pt dressing to rectal area cdi. report received from Dwaine RIOS and Donn BERNARD.
--- NOTE | 2025-06-30 08:39 | SUR.PHASEII ---
pt able to tolerate oral fluids without difficulty swallowing or nausea/vomiting.
--- NOTE | 2025-06-30 09:05 | SUR.PHASEII ---
pt awake and alert, breathing unlabored on room air. v/s stable. pt dressing to rectal area cdi. pt able to ambulate to wheelchair with steady gait. d/c instructions given with family Robbie in room, all questions answered. pt d/c via wheelchair with all belongings.
== END 2025-06-30 09:05 | disposition home or self-care (01) ==
PROVIDERS: Anesthesiology; PCP Internal Medicine; Referring Provider Surgery; Visit Provider Surgery
PROC: (CPT 46020; principal; 2025-06-30 07:30)
DX: K60.30 Anal fistula, unspecified (principal)
CPT/HCPCS: 46020; 36415; 80053; 85025; 85610; 85730; A4649; J1100; J2371; J2405; J2704; J2765; J3010; J3490

== ENCOUNTER 2025-07-12 12:58 | Outpatient (AMB) | payer MEDICARE, SELFPAY ==
--- NOTE | 2025-07-12 13:12 | GSCOFFNT_ITS ---
Vital Signs - [facility] 07/12/25 13:19 Height 1.78 m Height Method Measured Weight 122.725 kg Weight Measurement Method Standing Scale BMI 38.8 BP 133/80 H Blood Pressure Source Automatic Cuff Blood Pressure Location Left Upper Arm Position Sitting Respiration 18 Pulse 78 Pulse Source Monitor Temp 96.8 F Temp Source Temporal Artery Scan Pulse Oximetry (%) 97 Oxygen Delivery Method Room Air Med/Allergies Allergies & Medications Allergies No Known Allergies Allergy (Verified 07/12/25 13:20) Medication Reconciliation duloxetine 60 mg capsule,delayed release 60 mg PO DAILY 05/25/24 [History Confirmed 07/12/25] linaclotide 145 mcg capsule (Linzess) 145 mcg PO DAILY 05/04/25 [History Confirmed 07/12/25] olmesartan 40 mg-hydrochlorothiazide 12.5 mg tablet 1 tab PO DAILY 05/04/25 [History Confirmed 07/12/25] semaglutide (weight loss) 0.25 mg/0.5 mL subcutaneous pen injector (Wegovy) 0.25 mg subcut Q7D 05/04/25 [History Confirmed 07/12/25] oxycodone-acetaminophen 5 mg-325 mg tablet (Percocet) 1 tab PO Q4H PRN pain #30 tabs 06/30/25 [Rx Confirmed 07/12/25] MA Intake Visit Data Collection New Patient or Established: Established Patient (seen at [facility] within 3 years) Seen by Clinical Staff ONLY (RN/MA): No Reason for Visit:: 2 WEEK POST OP SETON PLACEMENT Pain Present Currently: No Pain Scale Used: Dewey-Mayers/Numerical Rural Route Mail Carrier Required: No PCP or OBGYN visit in last 3 months: Yes Hx Now: No Do You Feel Safe at Home: Yes Authorities Contacted: N/A Smoking Status Smoking Status: Never smoker Immunization / Flu Flu Vaccine in the Last 12 Months: Yes Flu Vaccine Exclusion Criteria: Already Received Past Medical History Past Medical History NEUROLOGIC: Negative Neurological Disorders or Seizures CARDIAC: Positive Cardiac Disorders and Hypertension; Negative Congestive Heart Failure RESPIRATORY: Negative Chronic Obstructive Pulmonary Disease (COPD) GASTROINTESTINAL: Positive Gastrointestinal Disorders and Obesity GENITOURINARY: Positive Genitourinary Disorders and Benign Prostatic Hyperplasia; Negative Renal Disease MUSCULOSKELETAL: Positive Fibromyalgia ENDOCRINE: Negative Endocrine Disorders, Diabetes Mellitus Type 1 or Diabetes Mellitus Type 2 HEMATOLOGIC: Positive Blood Disorders and Anemia OTHER HISTORY: Positive Hospitalization and Falls (right shoulder pain); Negative Autoimmune Disease, Developmental Delay, Shingles, Blood Transfusions, Blood Transfusion Reaction, Anesthesia Reactions or Cancer Family History FAMILY HISTORY: Negative Family Psychiatric Problems, Family Respiratory Disorders, Family Cardiac Disorders, Family Gastrointestinal Problems, Family Cancer, Family Surgery or Family Anesthesia Reaction Surgical History SURGICAL: Positive Gastric Bypass Surgery; Negative Bowel Surgery Social History SMOKING STATUS: Smoking status: Never smoker SECOND HAND EXPOSURE: second hand exposure: No ALCOHOL: Alcohol Intake: Current ALCOHOL FREQUENCY: Alcohol Intake Frequency: holidays/special occasions only HOUSING: Housing: House LIVES WITH: Lives With: Alone HPI HPI Narrative 64M with HTN, edema, obesity and 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 Pt reports feeling very well overall; he has no pain, is taking sitz baths regularly and continues to have drainage although it does seem to have decreased somewhat. 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 I explained that definitive surgery will be undertaken when drainage significantly decreases and pt expressed understanding Plan: Follow up in 6 weeks Advanced Care Planning Advance care planning discussed with:: other Office Procedures GNS Level of Care Nursing/Assessment Patient Status: Established Patient Nursing Assessment/Reassesment: Medication Reconciliation, Update PMH in EMR and Vital Signs Coordination of Care: Complex Care and Chronic Disease 1-5, Education Complex Pt/Fam, Consent,records obtained, informed consent, Results/Orders obtained and Staff clarify orders Established Patient Charge Established Patient Point Assignment: 95 Established Patient Point Charge: EP Level 3 (80-115) Patient Portal Questionaires Social History Living Situation History Housing: House Tobacco History Smoking Status: Never smoker Second Hand Smoke Exposure: No Alcohol History Alcohol Intake: Current Alcohol Intake Frequency: holidays/special occasions only Domestic Abuse History Do You Feel Safe at Home: Yes Review of Systems Report any current symptoms Only answer those that you have currently: Past Medical History Past Medical History Have you ever been diagnosed with any of the following: Neurological Problems Seizures: No Cardiology Problems Congestive Heart Failure: No Hypertension: Yes Respiratory Problems Chronic Obstructive Pulmonary Disease (COPD): No Stomache/Intestinal Problems Obesity: Yes Genital/Urinary Problems Renal Disease: No Benign Prostatic Hyperplasia: Yes Musculoskeletal Problems Fibromyalgia: Yes Endocrine Problems Diabetes Mellitus Type 1: No Diabetes Mellitus Type 2: No Blood Problems Anemia: Yes Other Problems Hospitalization: Yes Autoimmune Disease: No Developmental Delay: No Shingles: No Falls: Yes (right shoulder pain) Blood Transfusions: No Blood Transfusion Reaction: No Anesthesia Reactions: No Cancer: No
[2025-07-12 13:19] VITALS: BP 133/80; PULSE 78; RESP 18; TEMP 36; O2SAT 97; BMI 38.8
== END 2025-07-12 13:24 | disposition home or self-care (01) ==
LOC: HODSRG 12:58
PROVIDERS: PCP Family Medicine; Referring Provider Family Medicine; Supervising Provider Surgery; Visit Provider Surgery
DX: Z48.816 Encounter for surgical aftercare following surgery on the genitourinary system (principal); I10 Essential (primary) hypertension; E66.9 Obesity, unspecified; Z68.38 Body mass index [BMI] 38.0-38.9, adult
CPT/HCPCS: 99213; G0463